=== PATIENT | male | born 1970 | race African-American/Black ===

== ENCOUNTER 2018-11-30 10:48 | Inpatient (IN) | payer SELFPAY ==
[2018-11-30] VITALS (8 sets, daily range): BP systolic 134–159; BP diastolic 76–110; PULSE 47–64; RESP 16–18; TEMP 36.8–37.2; O2SAT 96–100
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
[2018-11-30] MEDS: HYDROmorphone 2 MG/ML VIAL 1 MG IVP ×8 (11:16→23:40)
[2018-11-30] MEDS: Normal Saline 1,000 ML 1000 ML IV (11:21)
[2018-11-30 11:24] LABS: Abs Immature Grans 0.03 k/cumm (0.0-0.09); Absolute Basophil Count 0.01 k/cumm (0.0-0.2); Absolute Eosinophil Count 0.16 k/cumm (0.0-0.7); Absolute Lymphocyte Count 1.07 k/cumm (1.2-3.4); Absolute Monocyte Count 0.72 k/cumm (0.11-0.7); Absolute Neutrophil Count 7.04 k/cumm (1.2-6.7); Basophils % 0.1; Eosinophils % 1.8; HCT 44.2 % (40.0-50.0); HGB 14.7 g/dL (13.5-17.5); Immature Grans % 0.3; Lymphocytes % 11.8; Mean Corp. HGB Concentration 33.3 g/dL (32.0-36.0); Mean Corpuscular Hemoglobin 26.5 pg (27.0-33.0); Mean Corpuscular Volume 79.8 fL (80-95); Mean Platelet Volume 9.1 fL (8.0-11.0); Platelet Count 239 x1000/uL (130-400); RBC 5.54 m/cumm (4.50-6.00); RBC Distribution Width 14.9 % (11.8-14.1); White Blood Cell Count 9.03 k/cumm (4.4-10.8)
[2018-11-30] MEDS: Omnipaque 350 MG/ML 100 ML BTL IJ (11:26)
[2018-11-30 11:34] LABS: ALT 31 U/L (16-63); AST 26 U/L (15-37); Albumin 4.1 g/dL (3.4-5.0); Alkaline Phosphatase 66 U/L (46-116); Anion Gap 8.5 mmol/L (3-11); BUN 12 mg/dL (7-18); Bilirubin, Total 0.7 mg/dL (0.2-1.0); CO2 29.5 mmol/L (21.0-32.0); CREATININE 1.34 mg/dL (0.70-1.30); Calcium 8.4 mg/dL (8.5-10.1); Chloride 103 mmol/L (98-107); Estimated GFR 56.89 (mL/min/1.73m2); Glucose 76 mg/dL (70-100); Potassium 4.1 mmol/L (3.5-5.1); Sodium 141 mmol/L (136-145); Total Protein 7.8 g/dL (6.4-8.2)
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
[2018-11-30] MEDS: Normal Saline Flush 10 ML SYR IVP ×6 (14:52→23:41)
[2018-11-30] MEDS: Lactated Ringers 1,000 ML 30 ML IV (15:00)
[2018-11-30] MEDS: Acetaminophen 325 MG TAB 650 MG PO (15:02)
--- NOTE | 2018-11-30 17:06 | NUR.NOTE ---
Nursing Note: Pt to MS floor from ER via wheelchair at 1400. A&Ox3; VSS BP 151/110. Pain reported as 12/28. Dilaudid administered with some relief. Pt oriented to MS floor, call subramanian, TV, etc. Call subramanian within reach. RN will continue to monitor.
[2018-11-30] MEDS: traMADol 50 MG TAB PO (17:36)
[2018-11-30] MEDS: Ketorolac 30 MG/ML VIAL IVP ×2 (17:36→23:40)
[2018-12-01 00:38] VITALS: BP 135/88; PULSE 56; RESP 18; TEMP 36.6; O2SAT 96
[2018-12-01] MEDS: Normal Saline Flush 10 ML SYR IVP ×9 (00:46→20:58)
[2018-12-01] MEDS: HYDROmorphone 2 MG/ML VIAL 1 MG IVP ×8 (00:46→20:58)
[2018-12-01 04:28] VITALS: BP 137/88; PULSE 50; RESP 18; TEMP 36.6; O2SAT 97
[2018-12-01] MEDS: Ketorolac 30 MG/ML VIAL IVP (05:43)
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
[2018-12-01 09:30] VITALS: BP 136/82; PULSE 51; RESP 14; TEMP 36.7; O2SAT 99
[2018-12-01] MEDS: HYDROmorphone 2 MG TAB PO ×2 (09:40→12:06)
--- NOTE | 2018-12-01 10:59 | INITIAL_ITS ---
- If Service Date Differs Date of service: 12/01/18 Time of Service: 10:59 Care Management Initial Assess REASON FOR HOSPITALIZATION:: Rib fractures PAST MEDICAL HISTORY/PAST SURGICAL HISTORY:: No significant medical history. 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 They have no children. 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 CURRENT FUNCTIONAL STATUS:: Vernon was sitting up in bed, obviously in pain, wincing and grimacing with movement.Vernon said he had tried oral pain meds but that they didn't work. His physician changed the medication back to IV and Vernon will rermain another day.He shared that he called and has an appointment with [facility] on and is grateful for the information CM provided. ADVANCE DIRECTIVES:: none on file Has patient been provided with information about the portal?: No Did the patient sign up for the portal?: No CODE STATUS:: Full Code INSURANCE COVERAGE / FINANCIAL ISSUES:: self pay - provided with Patient Assistance packet and [facility] brochure CURRENT HOME/COMMUNITY SERVICES/EQUIPMENT:: none PRIMARY CARE PHYSICIAN:: none POTENTIAL DISCHARGE NEEDS:: new PCP. Insurance PATIENT/FAMILY EDUCATION NEEDS:: Discharge plan, limitations, follow up plan, A [employer] TRANSPORTATION:: via private vehicle when ready with girlfriend PLAN:: Vernon will be discharged home with no services. He will follow up with [facility] on and with his surgeon. He will transport with his partner Nicole.CM will continue to provide support to patient, family and discharge planning needs.
[2018-12-01] MEDS: Acetaminophen 325 MG TAB 650 MG PO (12:06)
[2018-12-01] MEDS: Ibuprofen 800 MG TAB PO ×2 (14:40→19:45)
--- NOTE | 2018-12-01 15:28 | PHARADMIT ---
Admission Pharmacy Clinical Review rib fractures Code Status Full Code Current Weight 79.379 kg Renally Cleared and Narrow Therapeutic Index Meds Crcl ~65.0 mL/min current meds okay QTc Value / Action Taken n/a BP Control, Fever BP 136/82 afebrile Electrolytes reviewed within normal limits DVT Prophylaxis none Opiate Usage / Scheduled Bowel Regimen Ordered prn/no Plt/SCr for Heparin / Enoxaparin plt 239 SCr 1.34 INR for Warfarin n/a H/H stable, WBC/Bands h/h 14.7/44.2 WBC 9.03 Antibiotic appropriateness none Cultures and Sensitivities none Surgical ABX d/c within 24 hr n/a DM control / Insulin Dosing BG 76 none Heart Failure (Check EF%) (MICKIE's, B-Block, Diuretics) none IV to PO Switch n/a Home Meds Reviewed yes Home Meds Not Ordered all ordered Comments
[2018-12-01 16:13] VITALS: BP 130/77; PULSE 81; RESP 16; TEMP 37; O2SAT 95
[2018-12-01] MEDS: LORazepam 2 MG/ML VIAL IVP (20:51)
[2018-12-01 21:03] VITALS: BP 136/74; PULSE 53; RESP 17; TEMP 36.2; O2SAT 97
[2018-12-02 00:22] VITALS: BP 138/72; PULSE 56; RESP 16; TEMP 36.4; O2SAT 99
[2018-12-02] MEDS: HYDROmorphone 2 MG/ML VIAL 1 MG IVP ×7 (04:29→16:39)
[2018-12-02] MEDS: Normal Saline Flush 10 ML SYR IVP ×7 (04:30→16:39)
[2018-12-02 04:34] VITALS: BP 123/76; PULSE 52; RESP 16; TEMP 36.7; O2SAT 96
[2018-12-02 08:00] VITALS: BP 144/93; PULSE 54; RESP 18; TEMP 36.6; O2SAT 96
[2018-12-02] MEDS: Ibuprofen 800 MG TAB PO ×2 (08:09→14:20)
--- NOTE | 2018-12-02 08:25 | W.PM.PROGNOT ---
Date of Service Date of service: 12/02/18 Time of Service: 07:45 Assessment and Plan Assessment and plan (1) Multiple rib fractures involving four or more ribs: Status: Acute Assessment and plan: Slow progress Will re-attempt transition to oral pain meds today and discharge this afternoon if pain controlled. Subjective Subjective Interval history since last seen: Slept better Did not take pain meds for about 8 hours overnight but was quite sore this morning Needed straight cath again last night but voided this morning No new complaints Exam Narrative Exam Narrative: Appears slightly more mobile Lungs CTA bilaterally Objective Objective Clinical Data: Vital Signs Temperature 98.1 F 12/02/18 04:34 Temperature Source Tympanic 12/02/18 04:34 Pulse 52 L 12/02/18 04:34 Pulse Rhythm Regular 12/02/18 04:30 Respiratory Rate 16 12/02/18 04:34 Respiratory Effort Non-Labored 12/02/18 04:30 Respiratory Depth Shallow 12/02/18 04:30 Respiratory Pattern Normal 12/02/18 04:30 Blood Pressure 123/76 12/02/18 04:34 Blood Pressure Position Sitting 11/30/18 10:51 Pulse Oximetry 96 12/02/18 04:34 Oxygen Delivery Method Room Air 12/02/18 04:34 Oxygen Flow Rate 0 12/02/18 04:34 Pain Level 9 12/02/18 08:09 Comment 12/02/18 04:34 Intake & Output 12/01/18 12/01/18 12/02/18 11:59 23:59 11:59 Intake Total 1115 / 1605 490 / 1605 Output Total 2410 / 3010 600 / 3010 450 / 450 Balance -1295 / -1405 -110 / -1405 -450 / -450 Intake: IV 515 / 525 10 / 525 Oral 600 / 1080 480 / 1080 Output: Urine 2410 / 3010 600 / 3010 450 / 450 Other: Urine Color Light Britney Yellow Yellow Light Britney Urine Appearance Clear Clear Clear Comment bladder scanned for 720. Patient voided 100 in toilet. Laboratory Results WBC 9.03 k/cumm (4.4-10.8) 11/30/18 11:05 RBC 5.54 m/cumm (4.50-6.00) 11/30/18 11:05 Hgb 14.7 g/dL (13.5-17.5) 11/30/18 11:05 Hct 44.2 % (40.0-50.0) 11/30/18 11:05 MCV 79.8 fL (80-95) L 11/30/18 11:05 MCH 26.5 pg (27.0-33.0) L 11/30/18 11:05 MCHC 33.3 g/dL (32.0-36.0) 11/30/18 11:05 RDW 14.9 % (11.8-14.1) H 11/30/18 11:05 Plt Count 239 x1000/uL (130-400) 11/30/18 11:05 MPV 9.1 fL (8.0-11.0) 11/30/18 11:05 Immature Gran % 0.3 11/30/18 11:05 Neutrophils % 78.0 11/30/18 11:05 Lymphocytes % 11.8 11/30/18 11:05 Monocytes % 8.0 11/30/18 11:05 Eosinophils % 1.8 11/30/18 11:05 Basophils % 0.1 11/30/18 11:05 Absolute Neutrophils 7.04 k/cumm (1.2-6.7) H 11/30/18 11:05 Absolute Lymphocytes 1.07 k/cumm (1.2-3.4) L 11/30/18 11:05 Absolute Monocytes 0.72 k/cumm (0.11-0.7) H 11/30/18 11:05 Absolute Eosinophils 0.16 k/cumm (0.0-0.7) 11/30/18 11:05 Absolute Basophils 0.01 k/cumm (0.0-0.2) 11/30/18 11:05 Sodium 141 mmol/L (136-145) 11/30/18 11:05 Potassium 4.1 mmol/L (3.5-5.1) 11/30/18 11:05 Chloride 103 mmol/L (98-107) 11/30/18 11:05 Carbon Dioxide 29.5 mmol/L (21.0-32.0) 11/30/18 11:05 Anion Gap 8.5 mmol/L (3-11) 11/30/18 11:05 BUN 12 mg/dL (7-18) 11/30/18 11:05 Creatinine 1.34 mg/dL (0.70-1.30) H 11/30/18 11:05 Estimated GFR/1.73 m2 56.89 (mL/min/1.73m2) 11/30/18 11:05 Glucose 76 mg/dL (70-100) 11/30/18 11:05 Calcium 8.4 mg/dL (8.5-10.1) L 11/30/18 11:05 Total Bilirubin 0.7 mg/dL (0.2-1.0) 11/30/18 11:05 AST 26 U/L (15-37) 11/30/18 11:05 ALT 31 U/L (16-63) 11/30/18 11:05 Alkaline Phosphatase 66 U/L (46-116) 11/30/18 11:05 Total Protein 7.8 g/dL (6.4-8.2) 11/30/18 11:05 Albumin 4.1 g/dL (3.4-5.0) 11/30/18 11:05
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
[2018-12-02] MEDS: Docusate Sodium 100 MG CAP PO (11:10)
[2018-12-02 11:39] VITALS: BP 147/89; PULSE 48; RESP 16; TEMP 35.7; O2SAT 100
[2018-12-02] MEDS: Polyethylene Glycol 3350 17 GM PACKET PO (12:20)
--- NOTE | 2018-12-02 15:35 | PDOC.CMDIS ---
- If Service Date Differs Date of service: 12/02/18 Time of Service: 15:36 LACE Index Scoring Tool - Questions: Length of Stay (in days): 3 Acuity (Admit via E.D.?): Yes E.D. Visits: 1 - Answers: Total Score: 7 Risk of Readmission: Low Risk Care Management Discharge Reason for Hospitalization: Rib fractures Discharge Plan: Vernon will return home with no additional services at this time. He will [facility] with [facility] on 12[facility], as well as a surgical follow up. He will transport via private vehicle driven by his partner, Nicole. Patient/Family Education Needs: Review discharge instructions regarding activity levels and medications, discussion of self care including Ask Me Three.
== END 2018-12-02 16:50 | disposition home or self-care (01) | DRG 185 ==
LOC: ER 13:21 → MS 14:25
PROVIDERS: Admitting Provider Surgery; Emergency Provider Physician Assistant; Visit Provider Surgery
DX: S22.42XA Multiple fractures of ribs, left side, initial encounter for closed fracture (principal); R07.81 Pleurodynia; V86.56XA Driver of dirt bike or motor/cross bike injured in nontraffic accident, initial encounter; Z23 Encounter for immunization
CPT/HCPCS: 36415; 74177; 80053; 96361; 96374; 96375; 99222; 99231; 99285; 71260; 85025; 99284; J1885; J2060; J3490

== ENCOUNTER 2018-12-03 10:00 | Emergency (ER) | payer SELFPAY ==
[2018-12-03] VITALS (7 sets, daily range): BP systolic 122–138; BP diastolic 68–85; PULSE 63–84; RESP 14–18; TEMP 37.5; O2SAT 95–96
--- NOTE | 2018-12-03 10:43 | DI.RAD_ITS ---
EXAM: XR CHEST 2V PA LATERAL INDICATION: Shortness of breath, recent rib fractures. COMPARISON: CT CHEST/ABD/PEL W from 11/30/2018 TECHNIQUE: 2D digital imaging was performed. FINDINGS: Heart size is normal. There is no mediastinal widening. The lungs are not well inflated on either v iew. Linear densities are seen above the left diaphragm, likely atelectasis. No pneumothorax is see n. There are left lateral rib fractures. The thoracic spine appears intact. IMPRESSION: Left lateral rib fractures and mild left basilar atelectasis.
[2018-12-03] MEDS: HYDROmorphone 2 MG/ML VIAL 1 MG IVP ×2 (10:59→13:34)
--- NOTE | 2018-12-03 11:06 | W.ED.GENAD ---
Discharge Plan Disposition Patient Disposition: HOME Condition: Improving Discharge Details Chief Complaint: SOB Clinical Impression: Multiple rib fractures involving four or more ribs Primary Care Provider: None,None ED Provider: Ralph Rosas Home Meds and New Rx's Prescriptions: New cyclobenzaprine 10 mg tablet 10 mg PO TID PRN (Reason: muscle spasm) Qty: 20 RF: 0 Continued albuterol sulfate [Ventolin HFA] 90 mcg/actuation Hfa Aerosol Inhaler 2 puff INHALATION QID PRNRF: 0 hydromorphone 2 mg tablet 2 - 4 mg PO Q3H PRN (Reason: pain) Qty: 40 RF: 0 ibuprofen 800 mg tablet 800 mg PO TID PRN (Reason: pain) Qty: 30 RF: 0 zolpidem [Ambien] 5 mg tablet 5 mg PO QHS PRN (Reason: sleep) Qty: 10 RF: 0 No Action oxycodone-acetaminophen [Percocet] 10-325 mg tablet 1 - 2 tab PO .q4-6 MDD 12 PRN (Reason: pain) Qty: 30 RF: 0 Discharge Instructions Instructions: Rib Fracture (ED) Additional Instructions: It is very important that you continue to take your pain medication on a normal schedule basis. Take 1 to 2 tablets of the hydromorphone every 3 hours. You may also utilize acetaminophen or ibuprofen and take in combination with narcotic pain medication. Continue to do deep breathing exercises as tolerated and if not improving please call the general surgery office tomorrow morning for reassessment. For any new or significant worsening of symptoms that is drastic or severe feel free to return to the emergency department Referrals: [facility] [Provider Group] (Call the office tomorrow morning) Discharge Data Discharge Date/Time-TO BE ENTERED AT DEPARTURE: 12/03/18 16:03 Medical Decision Making Patient presenting to the emergency department for chief complaint of continued rib pain. Patient recently suffered a traumatic injury with multiple rib fractures. Patient was discharged last night on hydromorphone but states pain has continued and he feels short of breath. Patient visibly does not appear in any significant or severe distress, no tachypnea, no tachycardia, no hypoxia. Patient has diminished lung sounds bilaterally in the lower bases otherwise clear lung sounds throughout and air movement is heard in all other lung steel. Plan to do chest x-ray to look for any change in status otherwise I feel that patient is mostly experiencing pain response due to traumatic injury. Pending results patient given IV hydromorphone. Review of chest x-ray shows no pneumothorax and continued stable rib fracture. Patient reassessed and stated that IV pain medication helped but is requesting imaging for continued IV pain medication. Patient though does state that he is concerned about cost is more cost effective than admission. Attend but will talk care management. Care arrangement came and cost with patient and after multiple discussions patient was agreeable to anesthesia consult and rib block. Pending anesthesia returning patient given additional dose of IV hydromorphone. After rib block was performed patient reassessed and did state significant improvement in pain posteriorly but still having some pain anteriorly that was not as severe as before but patient extremely anxious about pain control. Patient was given lidocaine patch on anterior chest wall otherwise I did speak with on-call surgeon Dr. Kay whom stated that she would not recommend admission at this time due for further pain control as patient is improving. I also agree with this plan. Discussed the plan with patient, patient during discussion became almost demanding for admission and IV pain medication. Given patient's history of narcotic abuse and stating that only IV pain medication works and that the oral hydromorphone did nothing I do have some concern. I feel the best plan is for patient to be discharged home given stable condition with no significant change and to reattempt oral pain medication that was already prescribed at discharge. Patient was informed to call general surgery office in the morning for any further follow-up and reassessment as needed. [facility] General Mode of arrival: ambulatory. Date/Time Provider Initiated Documentation: 12/03/18 10:02. Limitations to Documentation: no limitations. Information obtained by: patient, family and RN notes reviewed. History of Present Illness 48 year old M presents to the emergency department with the chief complaint of Shortness of breath, rib pain, described as severe, with intensity rated at 10. Quality is described as sharp, and is localized to the chest and left. Patient started experiencing this day(s) (3) and it has been constant. No relieving factors improve symptom(s), Patient did receive the following treatments prior to arrival, other (Prescribed opiate at 9 AM) Related Data Home Medications Medication Instructions Recorded Confirmed albuterol sulfate [Ventolin HFA] 2 puff INHALATION QID PRN 11/30/18 12/03/18 hydromorphone 2 - 4 mg PO Q3H PRN #40 tab 12/02/18 12/03/18 ibuprofen 800 mg PO TID PRN #30 tab 12/02/18 12/03/18 zolpidem [Ambien] 5 mg PO QHS PRN #10 tab 12/02/18 12/03/18 cyclobenzaprine 10 mg PO TID PRN #20 tab 12/03/18 oxycodone-acetaminophen 10 mg-325 1 - 2 tab PO .q4-6 PRN #30 tab MDD 12/04/18 mg tablet 12 Previous Rx's Medication Instructions Recorded hydromorphone 2 - 4 mg PO Q3H PRN #40 tab 12/02/18 ibuprofen 800 mg PO TID PRN #30 tab 12/02/18 zolpidem [Ambien] 5 mg PO QHS PRN #10 tab 12/02/18 cyclobenzaprine 10 mg PO TID PRN #20 tab 12/03/18 oxycodone-acetaminophen 10 mg-325 1 - 2 tab PO .q4-6 PRN #30 tab MDD 12/04/18 mg tablet 12 Allergies Allergy/AdvReac Type Severity Reaction Status Date / Time No Known Allergies Allergy Unverified 12/03/18 10:16 General Stated Complaint: SOB BILLY: 3 Review of Systems Constitutional Constitutional: Denies fever(s) Cardiovascular Cardiovascular: Reports chest pain, Denies palpitations and Reports dyspnea Respiratory Respiratory: Denies cough, Reports pain on inspiration and Reports dyspnea Gastrointestinal Gastrointestinal: Denies abdominal pain Endocrine Endocrine: Denies palpitations [facility] [place] Surgical History S/P laminectomy (Acute) Social History Smoking/Tobacco Use Status: Never Alcohol Intake: never Substance use type: does not use Do you feel safe at home: Yes Do you feel safe in your relationship?: Yes Exam Const General: cooperative, no acute distress and not ill appearing Orientation: alert, awake and oriented x3 HENMT Mouth: moist mucous membranes Chest Chest: localized rib tenderness with anteroposterior compression left anterior-axillary line Resp Effort & Inspection: normal respiratory effort, able to speak in complete sentences and no respiratory distress Auscultation: clear to auscultation bilaterally and diminished lung sounds bilaterally in the lower lung steel Cardio Rate: regular rate and not tachycardic Rhythm: regular rhythm Heart Sounds: S1 normal, S2 normal, no click, no gallops, no murmurs and no rubs Neuro General: alert, awake, oriented x3, moves all extremities and no focal motor deficits Sensory Exam: no sensory deficits noted Course Vital Signs Vital signs: Vital Signs Temperature 37.5 C 12/03/18 10:08 Pulse 84 12/03/18 10:08 Respiratory Rate 14 12/03/18 10:08 Blood Pressure 137/81 12/03/18 10:08 Pulse Oximetry 96 12/03/18 10:08 Temperature 37.5 C 12/03/18 10:08 Temperature Source Temporal Artery Scan 12/03/18 10:08 Pulse 84 12/03/18 10:08 Respiratory Rate 14 12/03/18 10:10 Respiratory Effort 12/03/18 10:10 Respiratory Depth Shallow 12/03/18 10:10 Respiratory Pattern Bradypnea 12/03/18 10:10 Blood Pressure 137/81 12/03/18 10:08 Blood Pressure Position Sitting 12/03/18 10:08 Pulse Oximetry 96 12/03/18 10:08 Oxygen Delivery Method Room Air 12/03/18 10:08 Oxygen Flow Rate 0 12/03/18 10:08 Pain Level 10 12/03/18 10:59
[2018-12-03] MEDS: Bupivacaine 0.25% Pres-Free 30 ML VIAL (14:25)
[2018-12-03] MEDS: Bupivacaine LIPOSOME/PF 133 MG/10 ML VIAL IJ (14:25)
--- NOTE | 2018-12-03 14:53 | PDOC.ERCMPRO ---
- If Service Date Differs Date of service: 12/03/18 Time of Service: 14:53 Care Management Progress Note S/O: RYAN met with Barrera at the bedside he arrives to the ED today with pain and SOB r/t recent rib fractures. Barrera was discharged home yesterday with oral medications to treat pain and discomfort. Barrera states that the oral pain medications are not working and he needs relief from pain. Barrera is very concerned with the cost of the medications due to lack of insurance. Barrera is over income for medicaid and he is planning on applying for insurance through [employer], and was provided with patient assistance application. CM confirmed with the patient that open enrollment is on December 19. CM contact patient billing and pharmacy the cost of the injection is considerably less than the cost of inpatient treatment. The medication used to inject the site is around 600.00 per pharmacy. CM was able to meet with the patient and anaesthesia to provide information about the treatment so that the patient could make an informed decision. The patient states he is okay having the nerve block and is hopeful that he will be able to be more comfortable and able to return home. P: Barrera will have the nerve block to relieve the pain in his left rib area. He has follow up schedule with surgeon on 12/08/18. Barrera has an appointment with [facility] [employer] [facility] for insurance assistance on 12/04/18.
[2018-12-03] MEDS: Lidocaine 5% Patch 1 PATCH TP (15:34)
--- NOTE | 2018-12-03 16:00 | NUR.NOTE ---
Referral faxed to [facility]Nursing Note:
== END 2018-12-03 16:03 | disposition home or self-care (01) ==
PROVIDERS: Emergency Provider Nurse Practitioner Family
DX: S22.42XA Multiple fractures of ribs, left side, initial encounter for closed fracture (principal); R07.81 Pleurodynia; V28.0XXA Motorcycle driver injured in noncollision transport accident in nontraffic accident, initial encounter
CPT/HCPCS: 64450; 76942; 96374; 96376; 99284; 71046

== ENCOUNTER 2019-03-03 08:12 | Outpatient (CLI) | payer BC, SELFPAY ==
[2019-03-03 09:23] LABS: Calculated LDL 95 mg/dL; Cholesterol 173 mg/dL (<200); HDL Cholesterol 70 mg/dL (40-60); Triglyceride 42 mg/dL (<150)
== END 2019-03-03 08:32 ==
PROVIDERS: PCP Family Medicine; Visit Provider Family Medicine
DX: Z13.220 Encounter for screening for lipoid disorders (principal)
CPT/HCPCS: 36415; 80061

== ENCOUNTER 2019-06-24 09:20 | Outpatient (CLI) | payer BC, SELFPAY ==
[2019-06-25 16:00] LABS: COVID-19 RT-PCR Result Not Detected ((See Note))
== END 2019-06-24 09:40 ==
PROVIDERS: PCP Family Medicine; Visit Provider Family Medicine
DX: R06.02 Shortness of breath (principal)
CPT/HCPCS: U0003

== ENCOUNTER 2019-07-01 02:03 | Outpatient (CLI) | payer BC, SELFPAY ==
--- NOTE | 2019-07-01 08:00 | DI.RAD_ITS ---
EXAM: XR CHEST 2V PA LATERAL CLINICAL HISTORY: Known asthma, dyspnea despite maximal therapy,R06.00 TECHNIQUE: 2D digital imaging was performed. COMPARISON: CR XR CHEST 2V PA LATERAL from 12/03/2018 FINDINGS: The heart is not enlarged. The lungs are clear and well expanded. No pleural effusion seen. Mediastin al contours appear intact. IMPRESSION: Normal chest
[2019-07-01 14:51] LABS: Abs Immature Grans 0.02 k/cumm (0.0-0.09); Absolute Basophil Count 0.01 k/cumm (0.0-0.2); Absolute Eosinophil Count 0.27 k/cumm (0.0-0.7); Absolute Lymphocyte Count 1.65 k/cumm (1.2-3.4); Absolute Neutrophil Count 4.86 k/cumm (1.2-6.7); Basophils % 0.1; Eosinophils % 3.6; HCT 43.5 % (40.0-50.0); HGB 14.3 g/dL (13.5-17.5); Immature Grans % 0.3 %; Mean Corp. HGB Concentration 32.9 g/dL (32.0-36.0); Mean Corpuscular Hemoglobin 26.5 pg (27.0-33.0); Mean Corpuscular Volume 80.6 fL (80-95); Mean Platelet Volume 8.9 fL (8.0-11.0); Monocytes % 9.3; Neutrophils % 64.7; Platelet Count 236 x1000/uL (130-400); RBC Distribution Width 14.4 % (11.8-14.1); White Blood Cell Count 7.51 k/cumm (4.4-10.8)
[2019-07-01 15:31] LABS: D-Dimer 164 ng/mlFEU (<500)
== END 2019-07-01 02:23 ==
PROVIDERS: PCP Family Medicine; Visit Provider Family Medicine
DX: R06.09 Other forms of dyspnea (principal); J45.909 Unspecified asthma, uncomplicated
CPT/HCPCS: 36415; 71046; 85025; 85379

== ENCOUNTER 2019-12-03 10:25 | Emergency (ER) | payer BC, SELFPAY ==
[2019-12-03] VITALS (47 sets, daily range): BP systolic 113–164; BP diastolic 72–101; PULSE 44–66; RESP 10–25; TEMP 36.8; O2SAT 98–100
--- NOTE | 2019-12-03 10:30 | RT.EKG_ITS ---
APPROVED REPORT Exam: Resting ECG Patient Location: E HR:49 bpm ECG Measurements Heart Rate 49 AXIS OK 158 P 63 QRSd 100 QRS 72 QT 469 T 63 QTc 423 Conclusion Sinus bradycardia...rate< 60 Probable left ventricular hypertrophy...multiple LVH criteria ST elev, probable normal early repol pattern...ST elevation, age<55. Suspect early repolarization. No STEMI. I have reviewed and interpreted ECG and agree with software generated interpretation.
--- NOTE | 2019-12-03 11:00 | DI.RAD_ITS ---
EXAM: XR PORTABLE CHEST AP CLINICAL HISTORY: left sided pain, sob TECHNIQUE: 2D digital imaging was performed. COMPARISON: No exams were available for comparison FINDINGS: MEDIASTINUM: Normal. HEART: Normal. PULMONARY VASCULATURE: Normal. LUNGS: Clear. PLEURAL SPACE: No pleural effusion or pneumothorax. BONE:Within normal limits for the patient's age. OTHER FINDINGS:Normal. IMPRESSION: No acute pulmonary findings. DATA REPOSITORY: RADIATION DOSE DELIVERED:
[2019-12-03 11:09] LABS: Abs Immature Grans 0.03 10^3/uL (0.0-0.06); Absolute Basophil Count 0.01 10^3/uL (0.0-0.2); Absolute Eosinophil Count 0.01 10^3/uL (0.0-0.7); Absolute Lymphocyte Count 0.75 10^3/uL (1.2-3.4); Absolute Neutrophil Count 5.41 10^3/uL (1.2-6.7); Basophils % 0.2; Eosinophils % 0.2; HCT 47.1 % (40.0-50.0); HGB 14.8 g/dL (13.5-17.5); Immature Grans % 0.5; Lymphocytes % 11.7; MCH 26.2 pg (27.0-33.0); MCHC 31.4 % (32.0-36.0); MCV 83.5 fL (80-95); Monocytes % 3.1; Neutrophils % 84.3; Nucleated RBC 0 %; Platelet Count 235 10^3/uL (130-400); RBC 5.64 10^6/uL (4.36-5.78); RDW-SD 42.5 fL; WBC 6.41 10^3/uL (4.4-10.8)
[2019-12-03 11:26] LABS: ALT 42 U/L (16-63); AST 28 U/L (15-37); Albumin 4.3 g/dL (3.4-5.0); Alkaline Phosphatase 46 U/L (46-116); Anion Gap 6.1 mmol/L (3-11); BUN 16 mg/dL (7-18); Bilirubin, Total 0.9 mg/dL (0.2-1.0); CO2 30.9 mmol/L (21.0-32.0); Calcium 9.4 mg/dL (8.5-10.1); Chloride 102 mmol/L (98-107); Estimated GFR 53.86 (mL/min/1.73m2); Glucose 106 mg/dL (74-106); Magnesium 2.1 mg/dL (1.8-2.4); Potassium 3.9 mmol/L (3.5-5.1); Sodium 139 mmol/L (136-145); Total Protein 7.8 g/dL (6.4-8.2)
[2019-12-03 11:29] LABS: Troponin I < 0.05 ng/mL (<0.06)
[2019-12-03 11:36] LABS: Prothrombin Time 10.2 sec (9.3-11.0)
[2019-12-03 11:45] LABS: D-Dimer 110 ng/mlFEU (<500)
--- NOTE | 2019-12-03 11:49 | ED.GENADUL_ITS ---
Discharge Plan Disposition Patient Disposition: HOME Condition: Stable Discharge Details Clinical Impression: Chest pain, Dyspnea Primary Care Provider: Musa Hylton ED Provider: Vernon Hudson Home Meds and New Rx's Prescriptions: New naproxen [Naprosyn] 500 mg tablet 500 mg PO BID PRNQty: 20 RF: 0 Continued bupropion HCl 150 mg tablet extended release 24 hr 150 mg PO QAM RF: 0 (DME) [employer] See Rx Instructions .ROUTE .MEDSUPPLY Qty: 1 RF: 0 albuterol sulfate [Ventolin HFA] 90 mcg/actuation HFA aerosol inhaler 2 puff INHALATION QID PRN (Reason: shortness of breath) Qty: 18 RF: 12 tadalafil 5 mg tablet 5 mg PO DAILY PRN (Reason: sexual activity) Qty: 90 RF: 11 budesonide-formoterol [Symbicort] 80-4.5 mcg/actuation HFA aerosol inhaler 2 puff IH BID Qty: 10.2 RF: 3 prednisone 50 mg tablet 50 mg PO DAILY 5 Days Qty: 5 RF: 0 Discharge Instructions Instructions: Chest Pain (ED), Dyspnea (ED) Additional Instructions: At this time your work-up in the ER was unremarkable for obvious emergent process. As we discussed, Naprosyn as directed. Please watch for new or worsening symptoms and return to the ER for any concerns. I recommend that you contact your primary care provider tomorrow for prompt outpatient reevaluation. I also recommend that you attempt to be seen sooner than your scheduled appointment with your compounding technician in February. Discharge Data Discharge Date/Time-TO BE ENTERED AT DEPARTURE: 12/03/19 15:22 Medical Decision Making This is a 49-year-old gentleman, history of asthma presenting to the ER reporting intermittent chest pain and shortness of breath. He states that the initial episode was nearly 4 months ago, resolved with a Z-Boo. He has since been scheduled to be seen by a compounding technician in February. Symptoms began again a few days ago, rescue inhalers did not help, placed on oral steroids by his primary care provider via telemedicine. He denies any cough, wheezing, and does not feel as though the steroids are making much of a difference in his symptoms. Clinically he appears well, nontoxic. Heart rate in the 50s. O2 sats 100% on room air, respirations 14, he is afebrile. He does have reproducible left-sided chest wall discomfort. Pain is made worse with taking deep breaths. Differential includes but not excluded to ACS, PE, pneumonia, bronchitis, asthma exacerbation, costochondritis, pleurisy, aneurysm, etc. Will initiate a cardiac work-up including PE. Initial work-up reveals a white blood cell count of 6.41 hemoglobin 14.8 hematocrit 47.1 platelet count 235. INR 1.0 D-dimer 110. Will not pursue chest CTA given his normal dimer. Electrolytes unremarkable. Creatinine 1.40 with a GFR of 53.86. Glucose 106. Calcium 9.4 magnesium 2.1 LFTs unremarkable. Initial troponin less than 0.05. Chest x-ray clear, initial EKG unremarkable. Discussed work-up with patient. He will be given 30 IV Toradol. He is agreeable to awaiting a repeat troponin and EKG in 3-hour timeframe. I was called into the room, patient questions if he needs to wait for the 3-hour troponin and EKG. I recommended that he did such. Given this he is willing to await the repeat studies. He reports no significant improvement with the Toradol. I will now try Mylanta and lidocaine. We also discussed that he will be tested for Covid and discussed quarantining. Patient reports no significant improvement with the Mylanta and lidocaine. Patient remains well-appearing. He speaks in full sentences and in no respiratory distress. O2 sat remains 100% on room air. I did place a call out to his primary care office to discuss his work-up here in the ER and need for outpatient evaluation. Unfortunately his primary care provider was not in the office and I was told I would receive a phone call from one of his colleagues. Repeat troponin less than 0.05. Repeat EKG performed at 1416. Please see official report by Dr. Pleitez. Sinus bradycardia, ventricular of 49. No STEMI. Likely left ventricular hypertrophy I discussed the repeat troponin and EKG with patient. He is relieved that this is normal but frustrated that we do not have a clear explanation of his symptoms. I explained to him that given his pain is reproducible, worse with taking a deep breath I do believe that initiating anti-inflammatory therapy is reasonable. Patient is agreeable to this plan and would like to be discharged. I have not received a call back from his primary care office to discuss his work-up. I will be sure to CC this note to his primary care provider to help expedite outpatient care. Patient was encouraged to return to the ER for new or worsening symptoms, otherwise reach out to his primary care provider tomorrow for prompt outpatient reevaluation. Medical Records Medical records reviewed: Yes I reviewed the patient's medical records. Imaging Data Radiologic Study: Attestation: I personally reviewed and interpreted this imaging study as follows: Imaging: X-Ray Radiologist's impression: Chest x-ray unremarkable Lab Data Lab results reviewed: Yes I reviewed the patient's lab results. Lab results narrative: Laboratory Tests Range/Units 12/03/19 12/03/19 12/03/19 10:50 10:50 10:50 WBC (4.4-10.8) 10^3/uL 6.41 RBC (4.36-5.78) 10^6/uL 5.64 Hgb (13.5-17.5) g/dL 14.8 Hct (40.0-50.0) % 47.1 MCV (80-95) fL 83.5 MCH (27.0-33.0) pg 26.2 L MCHC (32.0-36.0) % 31.4 L RDW (11.8-14.1) % 14.0 Plt Count (130-400) 10^3/uL 235 MPV (8.0-11.0) fL 9.0 Immature Gran % 0.5 Neutrophils % 84.3 Lymphocytes % 11.7 Monocytes % 3.1 Eosinophils % 0.2 Basophils % 0.2 Nucleated RBC % % 0 Absolute Neutrophils (1.2-6.7) 10^3/uL 5.41 Absolute Lymphocytes (1.2-3.4) 10^3/uL 0.75 L Absolute Monocytes (0.1-0.8) 10^3/uL 0.20 Absolute Eosinophils (0.0-0.7) 10^3/uL 0.01 Absolute Basophils (0.0-0.2) 10^3/uL 0.01 PT (9.3-11.0) sec 10.2 INR (0.9-1.1) 1.0 APTT (21.0-31.4) sec 26.0 D-Dimer (<500) ng/mlFEU 110 Sodium (136-145) mmol/L 139 Potassium (3.5-5.1) mmol/L 3.9 Chloride (98-107) mmol/L 102 Carbon Dioxide (21.0-32.0) mmol/L 30.9 Anion Gap (3-11) mmol/L 6.1 BUN (7-18) mg/dL 16 Creatinine (0.70-1.30) mg/dL 1.40 H Estimated GFR/1.73 m2 (mL/min/1.73m2) 53.86 Glucose (74-106) mg/dL 106 Calcium (8.5-10.1) mg/dL 9.4 Magnesium (1.8-2.4) mg/dL 2.1 Total Bilirubin (0.2-1.0) mg/dL 0.9 AST (15-37) U/L 28 ALT (16-63) U/L 42 Alkaline Phosphatase (46-116) U/L 46 Troponin I (<0.06) ng/mL < 0.05 Total Protein (6.4-8.2) g/dL 7.8 Albumin (3.4-5.0) g/dL 4.3 COVID-19 PCR Nasopharyn COVID-19 PCR Ref Test Perform Site Range/Units 12/03/19 12/03/19 14:09 15:15 WBC (4.4-10.8) 10^3/uL RBC (4.36-5.78) 10^6/uL Hgb (13.5-17.5) g/dL Hct (40.0-50.0) % MCV (80-95) fL MCH (27.0-33.0) pg MCHC (32.0-36.0) % RDW (11.8-14.1) % Plt Count (130-400) 10^3/uL MPV (8.0-11.0) fL Immature Gran % Neutrophils % Lymphocytes % Monocytes % Eosinophils % Basophils % Nucleated RBC % % Absolute Neutrophils (1.2-6.7) 10^3/uL Absolute Lymphocytes (1.2-3.4) 10^3/uL Absolute Monocytes (0.1-0.8) 10^3/uL Absolute Eosinophils (0.0-0.7) 10^3/uL Absolute Basophils (0.0-0.2) 10^3/uL PT (9.3-11.0) sec INR (0.9-1.1) APTT (21.0-31.4) sec D-Dimer (<500) ng/mlFEU Sodium (136-145) mmol/L Potassium (3.5-5.1) mmol/L Chloride (98-107) mmol/L Carbon Dioxide (21.0-32.0) mmol/L Anion Gap (3-11) mmol/L BUN (7-18) mg/dL Creatinine (0.70-1.30) mg/dL Estimated GFR/1.73 m2 (mL/min/1.73m2) Glucose (74-106) mg/dL Calcium (8.5-10.1) mg/dL Magnesium (1.8-2.4) mg/dL Total Bilirubin (0.2-1.0) mg/dL AST (15-37) U/L ALT (16-63) U/L Alkaline Phosphatase (46-116) U/L Troponin I (<0.06) ng/mL < 0.05 Total Protein (6.4-8.2) g/dL Albumin (3.4-5.0) g/dL COVID-19 PCR Cancelled Nasopharyn COVID-19 PCR Cancelled Ref Test Perform Site Cancelled ECG Data Attestation: I personally reviewed and interpreted this ECG (s) as follows: Interpretation: Please see official report by Dr. Pleitez. Sinus bradycardia, ventricular rate of 49. Likely early repolarization. No STEMI HPI General Mode of arrival: ambulatory . Date/Time Provider Initiated Documentation: 12/03/19 10:46 . Limitations to Documentation: no limitations . Information obtained by: patient . HPI Narrative: This is a 49-year-old female with a history of asthma, depression, back pain-sciatica, substance abuse, presenting to the ER for chest pain and shortness of breath. He reports that he had a similar episode nearly 4 months ago. At that time he was given a prescription of azithromycin through his primary care provider and felt much improved. He states that over the past couple of days he initially had a right sided chest pain that now is on the left side. He denies any radiation of that pain. It is made worse with taking a deep breath. He states that he feels short of breath like he cannot take a deep breath but denies any coughing or wheezing. He is on day 3 of 50 mg p.o. prednisone provided by his primary care provider. He thought that he was initially doing slightly better but now feels as though steroids are not helping. Patient denies headache, fever, neck pain, back pain, abdominal pain, nausea, vomiting, change in bowel or bladder function, numbness, tingling, weakness. He denies any cardiac history. Patient is not a smoker. He is scheduled to be seen by compounding technician for his ongoing symptoms however this is not scheduled until February. He states that when his symptoms began he took his rescue inhaler without any relief of his symptoms. Related Data Home Medications Medication Instructions Recorded Confirmed albuterol sulfate 90 mcg/actuation 2 puff INHALATION QID PRN #18 gm 03/10/19 12/03/19 aerosol inhaler bupropion HCl 150 mg 24 hr tablet, 150 mg PO QAM tab 06/04/19 12/03/19 extended release inhalational spacing device #1 each 06/23/19 07/08/19 tadalafil 5 mg tablet 5 mg PO DAILY PRN #90 tab 09/17/19 12/03/19 budesonide-formoterol HFA 80 2 puff IH BID #10.2 g 11/16/19 12/03/19 mcg-4.5 mcg/actuation aerosol inhaler prednisone 50 mg tablet 50 mg PO DAILY 5 Days #5 tab 12/01/19 12/03/19 naproxen [Naprosyn] 500 mg PO BID PRN #20 tab 12/03/19 Previous Rx's Medication Instructions Recorded albuterol sulfate 90 mcg/actuation 2 puff INHALATION QID PRN #18 gm 03/10/19 aerosol inhaler inhalational spacing device #1 each 06/23/19 tadalafil 5 mg tablet 5 mg PO DAILY PRN #90 tab 09/17/19 budesonide-formoterol HFA 80 2 puff IH BID #10.2 g 11/16/19 mcg-4.5 mcg/actuation aerosol inhaler prednisone 50 mg tablet 50 mg PO DAILY 5 Days #5 tab 12/01/19 naproxen [Naprosyn] 500 mg PO BID PRN #20 tab 12/03/19 Allergies Allergy/AdvReac Type Severity Reaction Status Date / Time fish derived Allergy Severe Anaphylaxsi Unverified 12/03/19 10:37 s peanut Allergy Severe Anaphylaxsi Unverified 12/03/19 10:37 s General Stated Complaint: RespSymp BILLY: 3 Review of Systems Constitutional Constitutional: Denies fatigue, Denies fever(s), Denies headache(s) and Denies weakness Eyes Eyes: Denies change in vision ENT Ears, Nose, Mouth, and Throat: Denies headache(s), Denies neck pain and Denies sore throat Cardiovascular Cardiovascular: Reports chest pain and Reports dyspnea Respiratory Respiratory: Denies cough, Reports dyspnea and Denies wheezing Gastrointestinal Gastrointestinal: Denies abdominal pain, Denies nausea and Denies vomiting Musculoskeletal Musculoskeletal: Denies myalgias, Denies neck pain, Denies numbness and Denies tingling Integumentary/Breasts Skin/Breast: Denies rash Neurologic Neurologic: Denies headache(s), Denies numbness, Denies tingling and Denies weakness Endocrine Endocrine: Denies fatigue Allergic/Immunologic Allergic/Immunologic: Denies wheezing [facility] Medical History Asthma Depressive disorder Insomnia Lumbar disc disease Positive PPD Right sciatic nerve pain Seasonal affective disorder Substance abuse Surgical History History of anterior cruciate ligament surgery (~2000) Right - Meniscal Repair History of shoulder surgery (~2015) Left S/P laminectomy Family History Father Asthma Mother Hypertension Social History Smoking/Tobacco Use Status: Never Alcohol Intake: current Alcohol Intake frequency: a few times a month Alcohol type: beer Drug use: Current Sobriety Substance use type: former substance user Adopted: No Caregiver/Support person: No Household members: significant other Housing: house Do you need help understanding health information?: Never 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/[employer] Sexually active: Yes Do you think of yourself as: straight/heterosexual Current gender identity: male Do you feel safe at home: Yes Do you feel safe in your relationship?: Yes Exam Const General: cooperative, healthy appearing, comfortable and no acute distress Orientation: alert, awake and oriented x3 [facility] Head: normal to inspection, normocephalic and atraumatic Face and sinus: normal facial exam Mouth: moist mucous membranes Throat: posterior oropharynx normal Eyes General: appearance normal, both eyes and all related structures Alignment and Position: alignment normal Periorbital: periorbital findings normal Eyelids: eyelids normal Conjunctivae: conjunctivae normal Sclera: sclerae normal Cornea: corneas normal Pupils: PERRL EOM: EOM intact bilaterally Direct ophthalmoscopy: normal light reflex Neck Neck: normal visual inspection, full ROM, trachea midline and supple Chest Chest: normal inspection of the chest, no crepitus and tenderness costochondral junction (Left-sided) Resp Effort & Inspection: normal respiratory effort and able to speak in complete sentences Auscultation: clear to auscultation bilaterally Cardio Rate: regular rate Rhythm: regular rhythm GI Inspection: normal to inspection Palpation: soft, not firm, no guarding, not rigid and nontender Back/Spine/Pelvis Back: No back tenderness Skin General skin exam: no rashes or lesions noted Neuro General: patient alert, patient awake, moves all extremities and no focal motor deficits Cognition: normal cognition Speech: speech normal Gait: normal gait Motor: muscle tone normal throughout Sensory Exam: no sensory deficits noted Extrem General: normal to inspection, full ROM, capillary refill normal, no pedal edema and no calf tenderness Psych Appearance: grossly normal Mental Status: mental status grossly normal Course Vital Signs Vital signs: Vital Signs Temperature 36.8 C 12/03/19 10:31 Pulse 58 L 12/03/19 10:31 Respiratory Rate 14 12/03/19 10:31 Blood Pressure 142/83 H 12/03/19 10:31 Pulse Oximetry 100 12/03/19 10:31 Temperature 36.8 C 12/03/19 10:31 Temperature Source Temporal Artery Scan 12/03/19 10:31 Pulse 47 L 12/03/19 11:16 Pulse 48 L 12/03/19 11:30 Respiratory Rate 11 L 12/03/19 11:30 Respiratory Effort 12/03/19 10:40 Respiratory Depth Normal 12/03/19 10:40 Blood Pressure 113/93 H 12/03/19 11:16 Blood Pressure Mean 97 12/03/19 11:16 Blood Pressure Position Sitting 12/03/19 10:31 Pulse Oximetry 99 12/03/19 11:30 Oxygen Delivery Method Room Air 12/03/19 10:31 Oxygen Flow Rate 0 12/03/19 10:31 Pain Level 7 12/03/19 10:31 Comment 12/03/19 10:31 Lab/Test Results Lab/Test Results: Laboratory Tests Range/Units 12/03/19 12/03/19 12/03/19 10:50 10:50 10:50 WBC (4.4-10.8) 10^3/uL 6.41 RBC (4.36-5.78) 10^6/uL 5.64 Hgb (13.5-17.5) g/dL 14.8 Hct (40.0-50.0) % 47.1 MCV (80-95) fL 83.5 MCH (27.0-33.0) pg 26.2 L MCHC (32.0-36.0) % 31.4 L RDW (11.8-14.1) % 14.0 Plt Count (130-400) 10^3/uL 235 MPV (8.0-11.0) fL 9.0 Immature Gran % 0.5 Neutrophils % 84.3 Lymphocytes % 11.7 Monocytes % 3.1 Eosinophils % 0.2 Basophils % 0.2 Nucleated RBC % % 0 Absolute Neutrophils (1.2-6.7) 10^3/uL 5.41 Absolute Lymphocytes (1.2-3.4) 10^3/uL 0.75 L Absolute Monocytes (0.1-0.8) 10^3/uL 0.20 Absolute Eosinophils (0.0-0.7) 10^3/uL 0.01 Absolute Basophils (0.0-0.2) 10^3/uL 0.01 PT (9.3-11.0) sec 10.2 INR (0.9-1.1) 1.0 APTT (21.0-31.4) sec 26.0 D-Dimer (<500) ng/mlFEU 110 Sodium (136-145) mmol/L 139 Potassium (3.5-5.1) mmol/L 3.9 Chloride (98-107) mmol/L 102 Carbon Dioxide (21.0-32.0) mmol/L 30.9 Anion Gap (3-11) mmol/L 6.1 BUN (7-18) mg/dL 16 Creatinine (0.70-1.30) mg/dL 1.40 H Estimated GFR/1.73 m2 (mL/min/1.73m2) 53.86 Glucose (74-106) mg/dL 106 Calcium (8.5-10.1) mg/dL 9.4 Magnesium (1.8-2.4) mg/dL 2.1 Total Bilirubin (0.2-1.0) mg/dL 0.9 AST (15-37) U/L 28 ALT (16-63) U/L 42 Alkaline Phosphatase (46-116) U/L 46 Troponin I (<0.06) ng/mL < 0.05 Total Protein (6.4-8.2) g/dL 7.8 Albumin (3.4-5.0) g/dL 4.3
[2019-12-03] MEDS: Ketorolac 30 MG/ML VIAL IVP (12:27)
[2019-12-03] MEDS: Normal Saline 1,000 ML 1000 ML IV (12:27)
--- NOTE | 2019-12-03 13:45 | RT.EKG_ITS ---
APPROVED REPORT Exam: Resting ECG Patient Location: E HR:49 bpm ECG Measurements Heart Rate 49 AXIS WA 149 P 56 QRSd 90 QRS 62 QT 473 T 62 QTc 428 Conclusion Sinus bradycardia...rate< 60 Probable left ventricular hypertrophy...multiple LVH criteria. No STEMI. I have reviewed and interpreted ECG and agree with software generated interpretation.
[2019-12-03 14:41] LABS: Troponin I < 0.05 ng/mL (<0.06)
[2019-12-06 01:52] LABS: SARS-CoV-2 RNA Undetected (Undetected); SARS-CoV-2 Specimen Source Nasal
== END 2019-12-03 15:22 | disposition home or self-care (01) ==
PROVIDERS: Emergency Provider Physician Assistant; PCP Family Medicine
DX: R06.00 Dyspnea, unspecified (principal); R07.81 Pleurodynia; R00.1 Bradycardia, unspecified; J45.909 Unspecified asthma, uncomplicated; Z03.818 Encounter for observation for suspected exposure to other biological agents ruled out
CPT/HCPCS: 36415; 80053; 93005; 96361; 96374; 99285; U0003; 71045; 83735; 84484; 85025; 85379; 85610; 85730; 93010; J1885

== ENCOUNTER 2020-03-11 10:08 | Outpatient (CLI) | payer BC, SELFPAY ==
[2020-03-12 17:10] LABS: COVID-19 RT-PCR Result NEGATIVE (Negative)
== END 2020-03-11 10:28 ==
PROVIDERS: PCP Family Medicine
DX: Z11.52 Encounter for screening for COVID-19 (principal); Z01.818 Encounter for other preprocedural examination
CPT/HCPCS: U0003

== ENCOUNTER 2020-10-25 14:40 | Outpatient (REF) | payer BC, SELFPAY ==
[2020-10-26 02:28] LABS: COVID-19 RT-PCR UVMMC Result Negative (Negative)
== END 2020-10-25 14:41 | disposition home or self-care (01) ==
LOC: LBN 14:40
PROVIDERS: PCP Family Medicine; Visit Provider Physician Assistant
DX: Z20.822 Contact with and (suspected) exposure to COVID-19 (principal); J32.9 Chronic sinusitis, unspecified
CPT/HCPCS: U0003

== ENCOUNTER 2021-01-17 02:40 | Outpatient (CLI) | payer BC, SELFPAY ==
[2021-01-18 10:26] LABS: HIV-1/2 Ag & Ab Screen Negative (Negative)
[2021-01-18 11:48] LABS: Syphilis Serology (RPR) Negative (Negative)
[2021-01-18 14:13] LABS: Chlamydia Result Negative (Negative); GC Result Negative (Negative)
== END 2021-01-17 02:41 | disposition home or self-care (01) ==
LOC: LBO 02:41
PROVIDERS: PCP Family Medicine; Visit Provider Family Medicine
DX: Z72.51 High risk heterosexual behavior (principal); Z11.4 Encounter for screening for human immunodeficiency virus [HIV]; Z11.3 Encounter for screening for infections with a predominantly sexual mode of transmission
CPT/HCPCS: 36415; 87389; 87491; 87591; 86592

== ENCOUNTER 2021-01-27 01:13 | Outpatient (CLI) | payer BC, SELFPAY ==
[2021-01-29 12:31] LABS: Hepatitis C Ab w Rflx HCV PCR Negative (Negative)
== END 2021-01-27 01:14 | disposition home or self-care (01) ==
LOC: LBO 01:13
PROVIDERS: PCP Family Medicine; Visit Provider Family Medicine
DX: Z11.59 Encounter for screening for other viral diseases (principal)
CPT/HCPCS: 36415; 86803

== ENCOUNTER 2021-03-01 14:09 | Outpatient (CLI) | payer BC, SELFPAY ==
--- NOTE | 2021-03-01 14:00 | DI.RAD_ITS ---
Exam(s) XR SHOULDER RT COMPLETE 2+V EXAM: XR SHOULDER RT COMPLETE 2+V CLINICAL HISTORY: right shoulder pain. TECHNIQUE: 2D digital imaging was performed. COMPARISON: CR XR SHOULDER LT COMPLETE 2+V from 03/01/2021 FINDINGS: There is no evidence of fracture or dislocation or abnormal soft tissue calcifications in the subacro mial space. However, on the axial view there is a tiny calcification noted in the soft tissues immed iately adjacent to the greater tuberosity, this being the insertional site of the rotator cuff mechan ism. This may indicate an element of rotator cuff tendinitis. The subacromial space itself is not d iminished. There are no obvious degenerative changes in the glenohumeral joint. Mild degenerative c hanges in the AC joint. Bone density is normal. IMPRESSION: DATA REPOSITORY: RADIATION DOSE DELIVERED:
--- NOTE | 2021-03-01 14:00 | DI.RAD_ITS ---
Exam(s) XR SHOULDER LT COMPLETE 2+V EXAM: XR SHOULDER LT COMPLETE 2+V CLINICAL HISTORY: left shoulder pain. TECHNIQUE: 2D digital imaging was performed. COMPARISON: CR XR SHOULDER RT COMPLETE 2+V from 03/01/2021 FINDINGS: There is no evidence of fracture or dislocation or abnormal soft tissue calcifications. No joint spa ce narrowing. No osteophytes. The subacromial space is not diminished. There is no os acromiale. Coracoid process is intact. Bone density is normal. No osseous lesions. IMPRESSION: DATA REPOSITORY: RADIATION DOSE DELIVERED:
== END 2021-03-01 14:10 | disposition home or self-care (01) ==
LOC: DIORS 14:09
PROVIDERS: PCP Family Medicine; Referring Provider Family Medicine; Visit Provider Student in an Organized Health Care Education/Training Program
DX: M25.512 Pain in left shoulder (principal); M25.511 Pain in right shoulder
CPT/HCPCS: 73030

== ENCOUNTER 2021-10-08 17:07 | Emergency (ER) | payer BC, SELFPAY ==
[2021-10-08 17:13] VITALS: PULSE 75; RESP 18; TEMP 36.8; O2SAT 98
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
[2021-10-08] MEDS: oxyCODONE 5 MG TAB PO (18:09)
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
== END 2021-10-08 20:33 | disposition home or self-care (01) ==
PROVIDERS: Emergency Provider Physician Assistant; PCP Family Medicine
DX: S22.32XA Fracture of one rib, left side, initial encounter for closed fracture (principal); V86.56XA Driver of dirt bike or motor/cross bike injured in nontraffic accident, initial encounter
CPT/HCPCS: 99284; 71046; 71100

== ENCOUNTER 2021-10-17 03:37 | Outpatient (CLI) | payer BC, SELFPAY ==
[2021-10-17 11:52] LABS: ALT 35 U/L (16-63); AST 23 U/L (15-37); Albumin 4.2 g/dL (3.4-5.0); Alkaline Phosphatase 53 U/L (46-116); Anion Gap 6.5 mmol/L (3-11); BUN 15 mg/dL (7-18); Bilirubin, Total 0.6 mg/dL (0.2-1.0); CO2 29.5 mmol/L (21.0-32.0); CREATININE 1.4 mg/dL (0.70-1.30); Calcium 8.7 mg/dL (8.5-10.1); Calculated LDL 65 mg/dL (<100); Chloride 103 mmol/L (98-107); Cholesterol 146 mg/dL (<200); Estimated GFR 60.85 (mL/min/1.73m2); Glucose 98 mg/dL (74-106); HDL Cholesterol 73 mg/dL (40-60); Potassium 3.7 mmol/L (3.5-5.1); Sodium 139 mmol/L (136-145); Total Protein 7.8 g/dL (6.4-8.2); Triglyceride 41 mg/dL (<150)
== END 2021-10-17 03:38 | disposition home or self-care (01) ==
LOC: LBO 03:37
PROVIDERS: PCP Family Medicine; Visit Provider Family Medicine
DX: Z13.220 Encounter for screening for lipoid disorders (principal); S22.32XA Fracture of one rib, left side, initial encounter for closed fracture; Z13.1 Encounter for screening for diabetes mellitus
CPT/HCPCS: 36415; 80053; 80061; 82306

== ENCOUNTER 2021-11-24 00:17 | Outpatient (CLI) | payer BC, SELFPAY ==
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
== END 2021-11-24 00:37 ==
LOC: DI 00:17
PROVIDERS: PCP Family Medicine; Visit Provider Student in an Organized Health Care Education/Training Program
DX: S83.412A Sprain of medial collateral ligament of left knee, initial encounter; S83.512A Sprain of anterior cruciate ligament of left knee, initial encounter; S83.282A Other tear of lateral meniscus, current injury, left knee, initial encounter; S83.242A Other tear of medial meniscus, current injury, left knee, initial encounter; X58.XXXA Exposure to other specified factors, initial encounter
CPT/HCPCS: 73721

== ENCOUNTER 2021-12-15 07:32 | Day surgery (SDC) | payer BC, SELFPAY ==
[2021-12-15] VITALS (14 sets, daily range): BP systolic 92–129; BP diastolic 47–84; PULSE 44–69; RESP 8–22; TEMP 36.2–36.7; O2SAT 98–100; BMI 25.5
[2021-12-15] MEDS: Lactated Ringers 1,000 ML 30 ML IV (08:26)
--- NOTE | 2021-12-15 09:08 | W.ANESPRE ---
General Info Date of Service Date Performed: 12/15/21 Height: 5 ft 8 in Weight: 76.3 kg Body Mass Index (BMI): 25.5 Surgical Procedure: Operation Date: 12/15/21 10:10 Proposed Procedure Side Surgeon p Knee ACL Reconstruction, any indicated Meniscal, Chondral and Synovial Surgery Left Iban Willams MD Meds Allergies and Home Medications Allergies Allergy/AdvReac Type Severity Reaction Status Date / Time fish derived Allergy Severe Anaphylaxsi Verified 12/15/21 07:56 s peanut Allergy Severe Anaphylaxsi Verified 12/15/21 07:56 s cat dander Allergy Intermediate Wheezing Unverified 12/15/21 07:56 Home Medication Medication Instructions Recorded albuterol sulfate 90 mcg/actuation 2 puff inhalation QID PRN 03/28/21 aerosol inhaler (Ventolin HFA) shortness of breath #18 grams bupropion HCl 150 mg tablet,12 hr 150 mg PO BID #180 tabs 03/28/21 sustained-release tadalafil 5 mg tablet 5 mg PO DAILY PRN sexual activity 09/05/21 #90 tabs duloxetine 30 mg capsule,delayed 30 mg PO BID #120 caps 09/07/21 release finasteride 5 mg tablet 5 mg PO DAILY #90 tabs 09/07/21 fluticasone propionate 50 2 spray intranasal DAILY PRN 10/08/21 mcg/actuation nasal spray,suspension Current Visit Medications: Current Medications Generic Name Dose Route Start Last Admin Trade Name Freq PRN Reason Stop Dose Admin Hydromorphone HCl 2 - 4 mg 12/15/21 06:57 Hydromorphone 2 Mg Tab PO Q3H PRN PRN Ringer's Solution 1,000 mls @ 30 mls/hr 12/15/21 06:00 12/15/21 08:26 IV 12/15/21 16:00 30 mls/hr INFUSION PARAMJIT Administration Cefazolin Sodium/Dextrose 2 gm in 50 mls @ 100 mls/hr 12/15/21 06:00 Ancef Duplex IVPB 12/15/21 23:59 PREOP PARAMJIT IV Miscellaneous Supplies 1 each 12/15/21 06:00 Iv Access IV 12/15/21 23:59 DIRECTED PARAMJIT Sodium Chloride 0 ml 12/15/21 06:00 Normal Saline Flush 10 Ml Syr IV 12/15/21 23:59 PRN PRN Sodium Chloride 0 ml 12/15/21 06:00 Normal Saline 10 Ml Vial IJ 12/15/21 23:59 DIRECTED PRN Sterile Water 0 ml 12/15/21 06:00 Water,Injection,Sterile 10 Ml Vial IJ 12/15/21 23:59 DIRECTED PRN PFSH Active Problems Active Problems: Problem Status Onset Code Internal derangement of left knee M23.92 Left ACL tear S83.512A Tear of medial collateral ligament of left knee S83.412A Benign localized prostatic hyperplasia with lower urinary tract symptoms (LUTS) N40.1 Right rotator cuff tendonitis M75.81 Tendonitis of left rotator cuff M75.82 Benign prostate hyperplasia N40.0 Seasonal affective disorder Substance abuse F19.10 Right sciatic nerve pain M54.31 Lumbar disc disease M51.9 Insomnia G47.00 Depressive disorder F32.9 Asthma J45.909 Multiple rib fractures involving four or more ribs S22.49XA Medical History Medical History Positive PPD Medical History Comments:: 12/15/21:pt smoked marijuana 12/14/21 Surgical History Surgical History History of anterior cruciate ligament surgery (~2000) Right - Meniscal Repair History of shoulder surgery (~2015) Left S/P laminectomy Tobacco Smoking/Tobacco Use Status: Never Passive smoking exposure: No Second hand exposure: No Alcohol Alcohol Intake: current Alcohol intake frequency: holidays/special occasions only Alcohol type: beer Substance Use Substance use: Current Sobriety Substance use type: former substance user Details: pt smoked marijuana 12/14/21 Vital Signs and Lab Results Vital Signs Most Recent Vital Signs in EMR: Most Recent Vital Signs Temp Pulse Resp BP Pulse Ox 36.7 C 69 16 118/83 99 12/15/21 08:04 12/15/21 08:04 12/15/21 08:04 12/15/21 08:04 12/15/21 08:04 Lab Results Blood Type / Crossmatch: No Data to Display Complete Blood Count: No Data to Display Complete Metabolic Panel: No Data to Display Liver Function Panel: No Data to Display Coagulation Panel: No Data to Display Cardiac Panel: No Data to Display Arterial Blood Gas: No Data to Display Venous Blood Gas: No Data to Display Pancreas Panel: No Data to Display Thyroid Panel: No Data to Display Infectious Disease: No Data to Display Blood Cultures: No Data to Display Toxicology Panel: No Data to Display Imaging and Studies Imaging and Studies Study information below may be from another EMR and interpreted by another provider. Please see original notes in EMR for more complete details. EKG Summary: 12/03/2019: Conclusion Sinus bradycardia...rate< 60 Probable left ventricular hypertrophy...multiple LVH criteria. No STEMI. Anesthesia Assessment and Plan Anesthesia History Personal History: No History of Anesthesia Complications Family History: No Family History of Anesthesia Complications Exercise Tolerance Exercise Tolerance: Metabolic Equivalents>4 Pertinent Negatives Pertinent Negatives: No Symptoms of GERD, No Major Cardiovascular Symptoms or Complaints and No Major Pulmonary Symptoms or Complaints Cardiac & Pulmonary Exam Cardiac Exam: Normal S1/S2 Heart Sounds Pulmonary Exam: Clear Bilateral Breath Sounds Implantable Cardiac Device Does patient have a Pacemaker or an ICD?: No Airway Exam Known Difficult Airway: No Mallampati Class: 1 Mouth Opening: Normal (> 3cm) Thyromental Distance: Greater than 3 cm Neck Range of Motion: Full ROM Neck Circumference: Normal Teeth Condition: Normal Dentition ASA Classification ASA Score: ASA 2 Emergency Case?: No NPO Status NPO Status: NPO Clears >2 hours, Solids >8 hours Anesthesia Plan Resuscitation Status: Full Code Anesthesia Technique: General Anesthesia Airway Planned: Endotracheal Tube Pain Management: Surgeon and patient request nerve block Monitors Used: Standard Monitors Preoperative Comments:: Rescue Block
[2021-12-15] MEDS: ceFAZolin 2 GM/50 ML BAG IVPB (11:00)
--- NOTE | 2021-12-15 12:00 | ROE_ITS ---
Date of service: 12/15/21 Time of Service: 12:00 Operative Note Operative Note DATE OF PROCEDURE: 12/15/21 PRE-OP DIAGNOSIS: Left knee: 1. ACL rupture 2. Medial & lateral meniscus tears 3. MCL sprain POST-OP DIAGNOSIS: other Left knee: 1. ACL rupture 2. Healed medial meniscus 4. Complex posterior horn lateral meniscus tear 3. Healed MCL sprain PROCEDURE: Left knee: 1. ACL reconstruction, CPT #70427: Quadriceps allograft 2. Lateral meniscus repair, CPT #24047 SURGEON: Iban Willams COMBINATION WINDOW INSTALLER: Brianna Karimi ANESTHESIA TYPE: Local By Surgeon and General LMA/ETT Refer to Anesthesia Record ESTIMATED BLOOD LOSS: 10 TOURNIQUET TIME: 0 COMPLICATIONS: None Patient was transported to: PACU Patient's condition: stable Implants: Arthrex ACL TightRope II RT and ABS with 8x12 mm cortical button QuadLink pre-sutured quadriceps allograft: 10 x68 mm Indications: Please see complete medical record for details. Findings: Exam under anesthesia: Full ROM, grossly positive Blessing, stable MCL. Stable LCL and posterior lateral corner. Arthroscopic findings: Complete midsubstance to proximal ACL disruption. Largely healed medial meniscus meniscocapsular disruption. Complex red-white into red zone posterior horn lateral meniscus tear. Intact articular cartilage throughout. Procedure Description: In the operating room, general anesthesia was induced. The patient was positioned supine on the operating room table. All bony prominences were well- padded. Preoperative antibiotics were administered. The knee was prepped and draped in the usual sterile fashion. The correct patient, procedure, and side of the procedure were all verified prior to incision. Exam under anesthesia was performed. 30 cc of 0.25% bupivacaine containing epinephrine was infiltrated about the planned anteromedial, anterolateral, lateral distal femoral, and pretibial surgery sites. The standard high and tight anterolateral and anteromedial portals were established and a complete diagnostic arthroscopy was performed with relevant findings detailed above. A passport cannula was inserted in both the anteromedial and anterolateral portals. The medial meniscus was thoroughly probed and stable. Lateral meniscus posterior horn tear was probed and felt to be amenable to repair given the fairly peripheral tear zone, intact articular cartilage in the lateral comp artment, and otherwise would require fairly significant meniscectomy. The knee scorpion was used to pass a mini suture tape circumferentially around the tear near the popliteal hiatus. This was secured with [facility] arthroscopic knots burying the knot peripherally. This was repeated with an additional repair stitch more central in the posterior horn. The repaired meniscus was probed and stable. In the intercondylar area, the ACL remnant was removed leaving enough footprint on the femur and tibia to localize anatomic socket placement. A small notchplasty was performed to allow proper visualization of the back wall. The graft was measured and prepared on the back table. The TightRope II BTB and TightRope II ABS adjustable-loop cortical suspensory fixation implants were loaded on QuadLink pre-sutured quadriceps allograft. The femoral and tibial ends each measured 10 mm. The graft was marked at 20 mm from each end. On the ABS side, the tensioning sutures were marked and a shuttle suture was added. The graft was manually tensioned and the construct did not demonstrate any elongation. The graft was then compressed in a graft tube and covered with vancomycin soaked sponges. The femoral guide was then placed through the anterolateral portal carefully targeting the appropriate anatomic ACL origin. The outer 9 mm diameter of the guide was positioned with a few millimeters of space between the proximal and posterior articular margins. On the lateral thigh, drill guide position and angle adjusted to about 60 degree angle to the longitudinal axis of the femur in the coronal plane and 20 degree angle to the trans-epicondylar axis in the axial plane to create the most optimal femoral socket. Knife and snap were used to open the skin and IT band and placed the drill guide on bone while maintaining appropriate position on the lateral wall. The tunnel length was noted to be used for marking and passing the femoral button. The flip cutter was then drilled to the appropriate location. The drill guide malleted 7 mm into the cortex. The remainder of the targeting guide removed. The FlipCutter was deployed to 10 mm and retrograde reaming done to a depth of 30 mm. Bony debris was removed with the shaver. The flip cutter was then closed, withdrawn, and a FiberStick used to pass a #2 FiberWire shuttle stitch, which was withdrawn out the anterolateral portal. The tibial guide was then used to target the anatomic ACL insertion through the anteromedial portal. The drill angle adjusted to 57.5 and a pretibial incision made. The drill guide was placed on bone, tunnel length noted, and the flip cutter drilled to the appropriate location. The drill guide malleted 7 mm into the cortex. The remainder of the targeting guide removed. The FlipCutter was deployed to 10mm and retrograde reaming done to a depth of 35mm. Bony debris was removed with the shaver. The flip cutter was then closed, withdrawn, and a FiberStick used to pass a #2 FiberWire shuttle stitch, which was withdrawn out the anteromedial portal. The mechanical shaver was used to remove bone debris as well as chamfer and remove soft tissue from the edges of the sockets. A femoral shuttle sutures were withdrawn out the anterior medial portal. The PassPort was removed. This portal dilated to accommodate the graft size. The graft was brought over to the knee and the femoral sutures shuttled out the lateral thigh and advanced until the button was near the far cortex. Under arthroscopic visualization with the knee slightly hyperflexed, and the button was then passed and flipped on the far cortex. Counter traction was then maintained on the tibial side of the graft while it was carefully advanced into the knee and then about 15 mm into the femoral socket. The tibial sutures were then shuttled through the tibial tunnel and passing stitch removed while carefully noting the tensioning stitches. The graft was then dunked about 15 mm into the tibial socket. 8x12mm ABS button was then loaded to the ABS loop and tension sutures used to bring the cortical button down to bone. The graft was advanced and then provisionally tensioned on both the femoral and tibial sides. The knee was then cycled 22 times, tensioning rechecked, and final tightening done with the knee in full extension with a moderate reverse Blessing maintained. The graft position and tension were appropriate. There was no impingement in full extension. Blessing exam was rock stable. MCL remained stable. Femoral passing sutures were removed. Backup knots were then tied on both sides and suture tails cut. The knee and all portals were copiously irrigated and then knee drained of arthroscopic fluid. 3-0 Monocryl was used to close the portals and small incisions in a buried interrupted fashion. Mastisol, Steri-Strips, Xeroform, 4 x 4 gauze, and sterile soft roll was applied. The extremity was wrapped gently with an Beck bandage. A soft knee immobilizer placed. The patient awoke from anesthesia without complication and was transferred to the recovery room in a stable condition.
--- NOTE | 2021-12-15 14:07 | W.PM.DSUDISC ---
Date of service: 12/15/21 Time of Service: 10:50 Discharge Plan Disposition Patient Disposition: HOME Condition: Good Discharge Details Reason For Visit: Left knee surgery Attending Provider: Iban Willams Primary Care Provider: Musa Hylton Home Meds and New Rx's Prescriptions: New aspirin 81 mg tablet,delayed release (DR/EC) 81 mg PO DAILY 14 Days Qty: 14 0RF naproxen 250 mg tablet 250 - 500 mg PO BID PRNQty: 40 0RF Rx Instructions: take with a meal hydromorphone [Dilaudid] 2 mg tablet 2 - 4 mg PO Q4H MDD 12 mg PRN (Reason: moderate to severe pain) Qty: 18 0RF Continued finasteride 5 mg tablet 5 mg PO DAILY Qty: 90 3RF duloxetine 30 mg capsule,delayed release(DR/EC) 30 mg PO BID Qty: 120 0RF albuterol sulfate [Ventolin HFA] 90 mcg/actuation HFA aerosol inhaler 2 puff INHALATION QID PRN (Reason: shortness of breath) Qty: 18 12RF bupropion HCl 150 mg tablet sustained-release 12 hr 150 mg PO BID Qty: 180 3RF Label Comments: Pt takes 300mg Daily, 10/08/21 tadalafil 5 mg tablet 5 mg PO DAILY PRN (Reason: sexual activity) Qty: 90 3RF Rx Instructions: administer approximately 30min before sexual activity; do not use more than 1 dose per 24hrs fluticasone propionate 50 mcg/actuation [place],Suspension 2 spray INTRANASAL DAILY PRN Rx Instructions: administer into each nostril Discharge Instructions Additional Instructions: Surgery: Left knee arthroscopy with quadriceps allograft ACL reconstruction and lateral meniscus repair Activity: Weightbearing as tolerated with the knee in full extension for 6 weeks. Use knee brace and crutches as needed for a few weeks. Restore full extension as soon as possible. Gentle progressive flexion: Limit 0-90 degrees for 6 weeks. Limit flexion 120 degrees weeks 6?8. May start spin/bike after 8 weeks. Closed?chain strengthening after 10 weeks. Avoid weighted deep flexion for 12 weeks. Remainder as per standard ACL reconstruction protocol. A physical therapy prescription will be sent electronically to start in 2 to 3 weeks. Prescriptions: Aspirin 81 mg take 1 daily to prevent a blood clot for 14 days Naproxen 250 mg take 1-2 every 12 hours with a meal as needed for moderate pain Dilaudid/hydromorphone 2 mg take 1-2 every 4-6 hours as needed for severe pain You may use [id number] Tylenol (acetaminophen) as needed for mild pain. These pain medications may be taken all at once or in different combinations as needed. Also, recommend Colace (docusate) as a stool softener as surgery and pain medicine cause constipation. You may try [id number] diphenhydramine (Benadryl) 25-50 mg nightly as a sleep aid Dressings: Leave dressing in place for 5 days. May then remove and leave open to air or cover incisions with Band-Aids. May shower after 7 days. Follow-up: 10-[address] Willams You may take off the leg compression stockings this evening at home. You may also leave them on a few days longer if you have a history of leg swelling or edema. Let us know right away if you develop any redness, drainage, fevers, chest pain, or trouble breathing. Do not drink alcohol or drive for at least 24 hours after anesthesia. Please call the office during business hours with any questions or concerns. Discharge Orders Discharge Orders: Discharge Order (Routine); Ordered 12/15/21 Ordered By: Iban Willams DS: Diagnosis Discharge Diagnosis (1) Left ACL tear: Status: Acute
[2021-12-15] MEDS: Normal Saline 10 ML VIAL IJ (15:00)
[2021-12-15] MEDS: HYDROmorphone 2 MG/ML SYR IVP ×3 (15:01→15:18)
[2021-12-15] MEDS: fentaNYL 100 MCG/2 ML VIAL IVP (15:26)
[2021-12-15] MEDS: HYDROmorphone 2 MG TAB PO ×2 (16:15→16:58)
--- NOTE | 2021-12-15 16:52 | W.ANESPOSTOP ---
Postoperative Evaluation Date, Time and Location Date Performed: 12/15/21 Time Performed: 16:15 Patient Location: PACU Vital Signs Most Recent Imported Vital Signs: Most Recent Vital Signs Temp Pulse Resp BP Pulse Ox 36.3 C L 56 L 16 116/72 100 12/15/21 16:09 12/15/21 16:09 12/15/21 16:09 12/15/21 16:09 12/15/21 16:09 Pain Score Most Recent Pain Score: Most Recent Pain Score Pain Level 6 12/15/21 16:11 Assessment Mental Status: Awake (Alert & Oriented to Patient Baseline) Airway and Respiratory Function: Patent airway with normal (patient baseline) respiratory exam Cardiovascular Function: Hemodynamically Stable Hydration Status: Adequately Hydrated Nausea & Vomiting: No Nausea or Vomiting Pain: Pain is Moderate or Severe (Patient has been offered a block 5 times by [address] Willams patiemt continues to refuse. Prefers to use oral pain meds. ) Postoperative Pain Management: Pain being addressed with medication Peripheral Nerve Block: Patient did not receive a nerve block
== END 2021-12-15 17:40 | disposition home or self-care (01) ==
LOC: SUR 07:32
PROVIDERS: PCP Family Medicine; Visit Provider Student in an Organized Health Care Education/Training Program
PROC: (CPT 29888; principal; 2021-12-15 10:00)
DX: S83.512A Sprain of anterior cruciate ligament of left knee, initial encounter (principal); S83.272A Complex tear of lateral meniscus, current injury, left knee, initial encounter; X58.XXXA Exposure to other specified factors, initial encounter
CPT/HCPCS: 29888; 29882; J0131; J0690; J1100; J1170; J1885; J2250; J2405; J3010

== ENCOUNTER 2022-04-19 23:46 | Emergency (ER) | payer BC, SELFPAY ==
--- NOTE | 2022-04-19 23:45 | RT.EKG_ITS ---
APPROVED REPORT Exam: Resting ECG Reason for Exam: dizziness Patient Location: E HR:73 bpm ECG Measurements Heart Rate 73 AXIS WA 178 P 71 QRSd 96 QRS 71 QT 401 T 58 QTc 442 Conclusion Sinus rhythm...normal P axis, V-rate 60- 99 Probable left atrial enlargement...P >50mS, <-0.10mV V1 Probable left ventricular hypertrophy...multiple LVH criteria Physician: no stemi, potential LVH, mild elevation in V1 and V2, but this is unchanged compared to pr ior from 12/03/19
[2022-04-19 23:47] VITALS: BP 161/73; PULSE 83; RESP 16; TEMP 37.5; O2SAT 99
[2022-04-19 23:50] VITALS: BP 161/73; PULSE 80; PULSE 81; RESP 18
[2022-04-19 23:51] VITALS: PULSE 83; RESP 18; O2SAT 99
[2022-04-20] VITALS (19 sets, daily range): BP systolic 123–138; BP diastolic 60–73; PULSE 56–85; RESP 12–23; O2SAT 95–100
--- NOTE | 2022-04-20 00:02 | W.ED.GENAD ---
Discharge Plan Disposition Patient Disposition: Home Condition: Good Discharge Details Clinical Impression: Light-headedness Primary Care Provider: Musa Hylton ED Provider: Juan Francisco Fu Home Meds and New Rx's Prescriptions: Discontinued prednisone 20 mg tablet See Rx Instructions PO DAILY Qty: 40 0RF Rx Instructions: t3 tabs for 7 days, then take 2 tabs for 5 days, then take 1 tab for 5 days, then t0.5 for 5 days, then stop orally daily; No Action oxycodone-acetaminophen [Percocet] 10-325 mg tablet 1 tab PO Q8H MDD 30mg PRN (Reason: severe pain) Qty: 15 0RF Rx Instructions: Use sparingly, and monitor bowels. tadalafil 5 mg tablet 5 mg PO DAILY PRN (Reason: sexual activity) Qty: 30 6RF Rx Instructions: administer approximately 30min before sexual activity; do not use more than 1 dose per 24hrs albuterol sulfate [Ventolin HFA] 90 mcg/actuation HFA aerosol inhaler 2 puff INHALATION QID PRN (Reason: shortness of breath) Qty: 18 12RF lurasidone 60 mg tablet 60 mg PO DAILY Qty: 90 3RF Hold Instructions: Home Medication placed on hold at Doctor's office Rx Instructions: must administer with food (at least 350 calories) lurasidone [Latuda] 60 mg tablet 60 mg PO DAILY Patient Comments: TAKE 1 TABLET BY MOUTH DAILY WITH FOOD 350 CALORIES Discharge Instructions Instructions: Near Syncope (ED) Additional Instructions: At this time I suspect that your episode of lightheadedness was secondary to a combination of your medication, as well as mild dehydration. However as we discussed together out of an abundance of precaution it is important to continue the outpatient follow-up for this. Please contact the radiology department and respiratory therapy department at the numbers provided to set up your ultrasound of your heart and your Holter monitor. Please drink plenty of fluids and stay well-hydrated. Avoid any aggressive physical activity for the next 72 hours. If you notice any worsening of your symptoms, or any new symptoms such as vomiting, diarrhea, fever, chills, shortness of breath, chest pain, numbness, weakness, or fainting , please return immediately to the emergency department for reevaluation. Please follow up with your primary care provider as soon as possible for reassessment and reevaluation. As always, it was a pleasure participating in your medical care today. Referrals: Musa Hylton DO [Primary Care Provider] - Discharge Orders Other Ambulatory Orders: Holter Monitor (Routine) Timeframe: 1 Week Facility: [facility] - Location: Respiratory Therapy Ordered By: Juan Francisco Fu Discharge Data Discharge Date/Time-TO BE ENTERED AT DEPARTURE: 04/20/22 02:30 Medical Decision Making 51-year-old -[place] male with past medical history of asthma, BPH, seasonal affective disorder, bipolar type II, who presents today for lightheadedness and chest pressure. Patient states that he was planning on starting intimacy with his , when he became lightheaded, felt shaky, and developed mild chest pressure and pounding. He was very anxious during this episode. They called 911, but because of low cell phone service they had to drive out down the road. When EMS arrived on the road they met him and he was still notably anxious and feeling lightheaded. However symptoms resolved shortly thereafter. Currently he is symptom-free. He denies any current chest pain, tearing or ripping sensation, numbness tingling or weakness. He denies any syncope. He denies having any significant events like this in the past, however he does state that occasionally in the past he has had mild episodes where he felt like his blood sugar was low which was resolved by eating food. Patient does take a daily tadalafil, and took this as directed at his regular time. He denies any personal history or family history of cardiac disease or dysrhythmia. No other complaints at this time. No other modifying factors. Exam demonstrates a well-appearing male, no focal deficits. Blood pressure and heart rate stable. Bedside ultrasound demonstrates an excellent ejection fraction, no evidence of severe profound hypertrophy, EKG is normal aside for evidence of potential LVH on EKG. differential includes dysrhythmia, dehydration, potential side effect from the tadalafil. We will rehydrate, evaluate for concerning etiologies, monitor closely and reassess. 5:07 AM Laboratory work-up has returned negative, initial and repeat troponin are normal. D-dimer is normal. Symptoms inconsistent with PE or dissection clinically. EKG does show evidence of questionable LVH, however bedside echo only shows minimal thickening, no evidence of significant volume restriction on limited bedside echo. After rehydration, patient feels well. He states that all symptoms have resolved. proBNP normal suggesting no signs of heart strain. I do suspect that the patient got lightheaded secondary to a combination of his tadalafil, in conjunction with being slightly dehydrated and drinking less today. However out of an abundance of precaution we will place an order for an outpatient Holter, as well as a formal outpatient echo. Patient is asking to be discharged. He does not wish to stay any longer or overnight. I do feel that this is reasonable. We did have a long discussion about the plan moving forward, and he and his understand. I have extensively reviewed the treatment plan and discharge instructions with the patient. I have addressed all patient concerns at this time. The patient was made aware of what symptoms to monitor for that would warrant a return to the emergency department. Discussed the plan with the patient, they demonstrate verbal understanding and agreement with our assessment and plan at this time. The documentation in this chart was dictated using [employer] dictation software. Please excuse any dictation errors. FINDINGS: Lungs: There is no evidence of focal pulmonary consolidation. Pleural spaces: No pleural effusion or pneumothorax. Heart/Mediastinum: The heart and mediastinum are normal in size. Bones/joints: No acute fracture. There are some old left rib fracture deformities. IMPRESSION: No acute findings. Thank you for allowing us to participate in the care of your patient. Dictated and Authenticated by: Torito Guy MD 04/20/2022 3:47 AM Eastern Time ([place] & [place]) HPI General Date/Time Provider Initiated Documentation: 04/19/22 23:49. HPI Narrative: 51-year-old -[place] male with past medical history of asthma, BPH, seasonal affective disorder, bipolar type II, who presents today for lightheadedness and chest pressure. Patient states that he was planning on starting intimacy with his , when he became lightheaded, felt shaky, and developed mild chest pressure and pounding. He was very anxious during this episode. They called 911, but because of low cell phone service they had to drive out down the road. When EMS arrived on the road they met him and he was still notably anxious and feeling lightheaded. However symptoms resolved shortly thereafter. Currently he is symptom-free. He denies any current chest pain, tearing or ripping sensation, numbness tingling or weakness. He denies any syncope. He denies having any significant events like this in the past, however he does state that occasionally in the past he has had mild episodes where he felt like his blood sugar was low which was resolved by eating food. Patient does take a daily tadalafil, and took this as directed at his regular time. He denies any personal history or family history of cardiac disease or dysrhythmia. No other complaints at this time. No other modifying factors. Related Data Home Medications Medication Instructions Recorded Confirmed oxycodone-acetaminophen 10 mg-325 1 tab PO Q8H PRN severe pain #15 04/10/22 04/19/22 mg tablet (Percocet) tabs albuterol sulfate 90 mcg/actuation 2 puff inhalation QID PRN 04/12/22 04/19/22 aerosol inhaler (Ventolin HFA) shortness of breath #18 grams lurasidone 60 mg tablet 60 mg PO DAILY #90 tabs 04/12/22 04/19/22 tadalafil 5 mg tablet 5 mg PO DAILY PRN sexual activity 04/12/22 04/19/22 #30 tabs lurasidone 60 mg tablet (Latuda) 60 mg PO DAILY 04/19/22 04/19/22 Previous Rx's Medication Instructions Recorded oxycodone-acetaminophen 10 mg-325 1 tab PO Q8H PRN severe pain #15 04/10/22 mg tablet (Percocet) tabs albuterol sulfate 90 mcg/actuation 2 puff inhalation QID PRN 04/12/22 aerosol inhaler (Ventolin HFA) shortness of breath #18 grams lurasidone 60 mg tablet 60 mg PO DAILY #90 tabs 04/12/22 tadalafil 5 mg tablet 5 mg PO DAILY PRN sexual activity 04/12/22 #30 tabs Allergies Allergy/AdvReac Type Severity Reaction Status Date / Time fish derived Allergy Severe Anaphylaxsi Verified 04/19/22 23:52 s peanut Allergy Severe Anaphylaxsi Verified 04/19/22 23:52 s cat dander Allergy Intermediate Wheezing Verified 04/19/22 23:52 General Stated Complaint: Dizzy/Sync BILLY: 2 Review of Systems All systems reviewed & are unremarkable except as noted in HPI and below PFSH All Active Problems (Updated 04/20/22 @ 01:57 by Juan Francisco Fu DO) Light-headedness (Acute) Xerosis of skin (Acute) Bipolar II disorder (Acute) Acute lateral meniscus tear of left knee (Acute) Left ACL tear (Acute) Tear of medial collateral ligament of left knee (Acute) Benign localized prostatic hyperplasia with lower urinary tract symptoms (LUTS) (Acute) Right rotator cuff tendonitis (Acute) Tendonitis of left rotator cuff (Acute) Benign prostate hyperplasia (Chronic) Seasonal affective disorder (Acute) Substance abuse (Acute) Right sciatic nerve pain (Acute) Lumbar disc disease (Acute) Insomnia (Acute) Depressive disorder (Chronic) Asthma (Chronic) Multiple rib fractures involving four or more ribs (Acute) 12/01/2018 Medical History Positive PPD Surgical History History of anterior cruciate ligament surgery (~2000) Right - Meniscal Repair History of shoulder surgery (~2015) Left S/P laminectomy Family History Father Asthma Mother Hypertension Social History Smoking/Tobacco Use Status: Never Second Hand Exposure: No Smoking risk assessment performed?: Yes Alcohol Intake: current Alcohol Intake frequency: holidays/special occasions only Alcohol type: beer Drug use: Current Sobriety Substance use type: former substance user Details: pt smoked marijuana 12/14/21 Adopted: No Caregiver/Support person: No Foster care: No Household members: none Housing: house Number of Children: 1 Communication Needs: None Do you need help understanding health information?: Never 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[employer] Pets and animals: Yes Sexually active: Yes Do you think of yourself as: straight/heterosexual Current gender identity: male What is your relationship status?: refused to answer How often do you talk on the phone with friends or family?: once per week How often do you get together with friends or relatives?: once per week How often do you attend yarsanism or jewish services?: decline to answer Do you belong to any clubs or organized social groups?: no Panel score (0-1 are the most socially isolated patients): 0 What type of physical activity do you participate in: running Duration: 15-30 minutes/day Frequency: 3-4 times per week Special bailey needs: No Seatbelt use: always Helmet use: Yes Helmet use: always Drive intox or ride w/intox catering driver: No Do you feel safe at home: Yes Do you feel safe in your relationship?: Yes Exam Narrative Exam Narrative: 1.Const: Well-nourished, Well-developed, appearing stated age 2.Eyes: PERRL, no conjunctival injection, and symmetrical lids. 3.ENT: Atraumatic external nose and ears. Moist MM. Neck: Symmetric, trachea midline, No thyromegaly. 4.CVS: +S1/S2, No murmurs or gallops. Peripheral pulses 2+ and equal in all extremities. Brisk capillary refill in all extremities. 5.RESP: Unlabored respiratory effort. Clear to auscultation bilaterally. No wheezes rales or rhonchi 6.GI: Soft, Nontender/Nondistended, No hepatosplenomegaly. No guarding or rebound. 7.MSK: Normocephalic/Atraumatic, Extremities w/o deformity or ttp No cyanosis or clubbing, Normal movement of all extremities 8.Skin: Warm, Dry. No rashes or lesions. 9.Neuro: family service worker II-XII grossly intact. Sensation grossly intact, no focal neurologic deficits. 10.Psych: (AAO) x3. Appropriate mood and affect Course Vital Signs Vital signs: Vital Signs Temperature 37.5 C 04/19/22 23:47 Pulse 83 04/19/22 23:47 Respiratory Rate 16 04/19/22 23:47 Blood Pressure 161/73 H 04/19/22 23:47 Pulse Oximetry 99 04/19/22 23:47 Temperature 37.5 C 04/19/22 23:47 Temperature Source Temporal Artery Scan 04/19/22 23:47 Pulse 83 04/19/22 23:47 Respiratory Rate 16 04/19/22 23:47 Respiratory Effort Normal 04/19/22 23:47 Blood Pressure 161/73 H 04/19/22 23:47 Blood Pressure Position Sitting 04/19/22 23:47 Pulse Oximetry 99 04/19/22 23:47 Pain Level 0 04/19/22 23:47 POCUS Exam (ED) Limited Cardiac Exam DATE OF EXAM: 04/20/22 TIME OF EXAM: 00:24 PROVIDER THAT PERFORMED THE STUDY: Juan Francisco Fu REASON FOR EXAM: Chest pain VISUALIZED STRUCTURES: Left atrium, Left ventricle, Right ventricle and Interventricular septum VIEW OBTAINED: Parasternal long-axis and Parasternal short-axis PERTINENT FINDINGS/IMPRESSION: No apparent abnormalities Exam complete
[2022-04-20 00:09] LABS: Abs Immature Grans 0.02 10^3/uL (0.0-0.06); Absolute Basophil Count 0.03 10^3/uL (0.0-0.2); Absolute Eosinophil Count 0.27 10^3/uL (0.0-0.7); Absolute Lymphocyte Count 2.33 10^3/uL (1.2-3.4); Absolute Monocyte Count 0.65 10^3/uL (0.1-0.8); Absolute Neutrophil Count 5.77 10^3/uL (1.2-6.7); Basophils % 0.3; HCT 43.9 % (40.0-50.0); HGB 13.9 g/dL (13.5-17.5); Immature Grans % 0.2; Lymphocytes % 25.7; MCH 25.9 pg (27.0-33.0); MCHC 31.7 % (32.0-36.0); MCV 82 fL (80-95); MPV 9.1 fL (8.0-11.0); Monocytes % 7.2; Neutrophils % 63.6; Platelet Count 203 10^3/uL (130-400); RBC 5.36 10^6/uL (4.36-5.78); RDW 13.9 % (11.8-14.1); RDW-SD 41.4 fL; WBC 9.07 10^3/uL (4.4-10.8)
[2022-04-20] MEDS: Normal Saline 1,000 ML 1000 ML IV (00:12)
[2022-04-20 00:28] LABS: PTT Activated 24.2 sec (21.5-31.9); Prothrombin Time 9.9 sec (9.3-11.0)
[2022-04-20 00:32] LABS: ALT 25 U/L (16-63); AST 15 U/L (15-37); Albumin 4.1 g/dL (3.4-5.0); Alkaline Phosphatase 54 U/L (46-116); Anion Gap 8.7 mmol/L (3-11); BUN 15 mg/dL (7-18); Bilirubin, Total 0.5 mg/dL (0.2-1.0); CO2 29.3 mmol/L (21.0-32.0); CREATININE 1.3 mg/dL (0.70-1.30); Calcium 8.9 mg/dL (8.5-10.1); Chloride 103 mmol/L (98-107); Estimated GFR 66.51 (mL/min/1.73m2); Glucose 128 mg/dL (74-106); NT-proBNP 14 pg/mL (<300); Potassium 3.5 mmol/L (3.5-5.1); Sodium 141 mmol/L (136-145); TSH (W/Ref FT4) 1.23 uIU/mL (0.36-3.74); Total Protein 7.5 g/dL (6.4-8.2); Troponin I < 50 ng/L (<or=60)
[2022-04-20 00:44] LABS: ETHANOL BLOOD < 3.0 mg/dL (<10)
--- NOTE | 2022-04-20 01:00 | DI.RAD_ITS ---
Exam(s) XR CHEST 2V PA LATERAL EXAM: XR CHEST 2V PA LATERAL CLINICAL HISTORY: chest pressure, central. TECHNIQUE: 2D digital imaging was performed. COMPARISON: CR,XR XR RIBS LT W PA LAT CHEST from 10/08/2021 FINDINGS: 2 views: Heart size is normal. The mediastinum is not widened. Lungs are clear. No infiltrates nor pleural effusions. Left rib abnormality again noted, unchanged and probably healed fracture. No obvious acute fractures evident on this chest study. IMPRESSION: No acute pulmonary findings. DATA REPOSITORY: RADIATION DOSE DELIVERED:
[2022-04-20 01:01] LABS: D-Dimer 182 ng/mlFEU (<500)
--- NOTE | 2022-04-20 02:07 | NUR.NOTE ---
requisitions faxed to DI for echocardiogram and RT for 48 hour holter monitor.Nursing Note:
[2022-04-20 02:14] LABS: Troponin I < 50 ng/L (<or=60)
--- NOTE | 2022-04-20 03:47 | DI.VRAD_ITS ---
PROCEDURE INFORMATION: Exam: XR Chest Exam date and time: 04/20/2022 1:18 AM Age: 51 years old Clinical indication: Pain; Chest pressure TECHNIQUE: Imaging protocol: Radiologic exam of the chest. Views: 2 views. COMPARISON: CR XR RIBS LT W PA LAT CHEST 10/08/2021 6:16 PM FINDINGS: Lungs: There is no evidence of focal pulmonary consolidation. Pleural spaces: No pleural effusion or pneumothorax. Heart/Mediastinum: The heart and mediastinum are normal in size. Bones/joints: No acute fracture. There are some old left rib fracture deformities. IMPRESSION: No acute findings. Dictated and Authenticated by: Torito Guy MD. Ordering:CELSA Chicas MD
== END 2022-04-20 02:30 | disposition home or self-care (01) ==
LOC: ER 04-20 02:12
PROVIDERS: Emergency Provider Student in an Organized Health Care Education/Training Program; PCP Family Medicine
DX: R42 Dizziness and giddiness (principal); R07.89 Other chest pain; Z79.899 Other long term (current) drug therapy
CPT/HCPCS: 36415; 80053; 93005; 93308; 96360; 99285; 71046; 80320; 83880; 84443; 84484; 85025; 85379; 85610; 85730; 93010; 99284

== ENCOUNTER 2022-06-18 04:56 | Outpatient (CLI) | payer BC, SELFPAY ==
[2022-06-18 14:19] LABS: Lithium 0.9 mmol/l (0.6-1.2)
== END 2022-06-18 04:57 | disposition home or self-care (01) ==
PROVIDERS: PCP Family Medicine; Visit Provider Family Medicine
DX: F31.81 Bipolar II disorder (principal)
CPT/HCPCS: 36415; 80178

== ENCOUNTER 2022-07-26 13:22 | Outpatient (CLI) | payer BC, SELFPAY ==
[2022-07-26 12:01] LABS: Lithium 1.4 mmol/l (0.6-1.2)
== END 2022-07-26 13:23 | disposition home or self-care (01) ==
LOC: LBO 13:26
PROVIDERS: PCP Family Medicine; Visit Provider Family Medicine
DX: F31.81 Bipolar II disorder (principal); Z79.899 Other long term (current) drug therapy; Z51.81 Encounter for therapeutic drug level monitoring
CPT/HCPCS: 36415; 80178

== ENCOUNTER 2022-08-27 16:02 | Outpatient (CLI) | payer BC, SELFPAY ==
[2022-08-27 12:13] LABS: Lithium 0.7 mmol/l (0.6-1.2)
== END 2022-08-27 16:03 | disposition home or self-care (01) ==
LOC: LBO 16:03
PROVIDERS: PCP Family Medicine; Visit Provider Family Medicine
DX: F31.81 Bipolar II disorder; Z51.81 Encounter for therapeutic drug level monitoring
CPT/HCPCS: 36415; 80178

== ENCOUNTER 2022-09-24 14:37 | Outpatient (CLI) | payer BC, SELFPAY | END 2022-09-24 14:38 | disposition home or self-care (01) | LOC: LBO 14:39 | PROVIDERS: PCP Family Medicine; Visit Provider Family Medicine | DX: F31.81 Bipolar II disorder (principal); Z51.81 Encounter for therapeutic drug level monitoring; Z79.899 Other long term (current) drug therapy | CPT/HCPCS: 36415; 80178 ==

== ENCOUNTER 2023-06-27 13:26 | Outpatient (CLI) | payer BC, SELFPAY ==
[2023-06-27 10:10] LABS: Abs Immature Grans 0.01 10^3/uL (0.0-0.06); Absolute Basophil Count 0.03 10^3/uL (0.0-0.2); Absolute Eosinophil Count 0.23 10^3/uL (0.0-0.7); Absolute Lymphocyte Count 1.22 10^3/uL (1.2-3.4); Absolute Monocyte Count 0.45 10^3/uL (0.1-0.8); Absolute Neutrophil Count 3.66 10^3/uL (1.2-6.7); Basophils % 0.5 %; Eosinophils % 4.1 %; HCT 43.3 % (40.0-50.0); HGB 13.7 g/dL (13.5-17.5); Immature Grans % 0.2 %; Lymphocytes % 21.8 %; MCH 27.2 pg (27.0-33.0); MCHC 31.6 % (32.0-36.0); MCV 86 fL (80-95); MPV 8.8 fL (8.0-11.0); Neutrophils % 65.4 %; Platelet Count 228 10^3/uL (130-400); RBC 5.04 10^6/uL (4.36-5.78); RDW 14.2 % (11.8-14.1); RDW-SD 45.1 fL
[2023-06-27 11:20] LABS: ALT 24 U/L (16-63); AST 13 U/L (15-37); Albumin 4.1 g/dL (3.4-5.0); Alkaline Phosphatase 54 U/L (46-116); Anion Gap 5.6 mmol/L (3-11); BUN 9 mg/dL (7-18); Bilirubin, Total 0.5 mg/dL (0.2-1.0); CO2 30.4 mmol/L (21.0-32.0); CREATININE 1.3 mg/dL (0.70-1.30); Calcium 9.2 mg/dL (8.5-10.1); Chloride 106 mmol/L (98-107); Glucose 94 mg/dL (74-106); Potassium 4.4 mmol/L (3.5-5.1); Sodium 142 mmol/L (136-145); TSH (W/Ref FT4) 0.64 uIU/mL (0.36-3.74); Total Protein 7.6 g/dL (6.4-8.2); Vitamin B12 880 pg/mL (193-986)
[2023-06-27 11:52] LABS: Vitamin D 25 Total 27.5 ng/mL (30-100)
== END 2023-06-27 13:27 | disposition home or self-care (01) ==
LOC: LBO 13:26
PROVIDERS: PCP Family Medicine; Visit Provider Registered Nurse
DX: F31.81 Bipolar II disorder (principal); Z51.81 Encounter for therapeutic drug level monitoring
CPT/HCPCS: 36415; 80053; 82306; 82607; 84443; 85025

== ENCOUNTER 2024-01-02 01:54 | Outpatient (CLI) | payer BC, SELFPAY ==
[2024-01-02 10:57] LABS: Abs Immature Grans 0.03 10^3/uL (0.0-0.06); Absolute Basophil Count 0.03 10^3/uL (0.0-0.2); Absolute Lymphocyte Count 1.55 10^3/uL (1.2-3.4); Absolute Monocyte Count 0.58 10^3/uL (0.1-0.8); Absolute Neutrophil Count 4.93 10^3/uL (1.2-6.7); Basophils % 0.4 %; Eosinophils % 5.3 %; HCT 46.1 % (40.0-50.0); HGB 14.5 g/dL (13.5-17.5); Immature Grans % 0.4 %; Lymphocytes % 20.6 %; MCH 27.1 pg (27.0-33.0); MCHC 31.5 % (32.0-36.0); MCV 86 fL (80-95); MPV 8.3 fL (8.0-11.0); Monocytes % 7.7 %; Neutrophils % 65.6 %; Platelet Count 208 10^3/uL (130-400); RBC 5.36 10^6/uL (4.36-5.78); RDW 14.1 % (11.8-14.1); RDW-SD 44.8 fL; WBC 7.52 10^3/uL (4.4-10.8)
[2024-01-02 12:12] LABS: Lithium 0.7 mmol/L (0.6-1.2)
[2024-01-02 12:40] LABS: ALT 18 U/L (16-63); AST 14 U/L (15-37); Albumin 4.2 g/dL (3.4-5.0); Alkaline Phosphatase 59 U/L (46-116); Anion Gap 5.8 mmol/L (3-11); BUN 13 mg/dL (7-18); Bilirubin, Total 0.67 mg/dL (0.2-1.0); CO2 31.2 mmol/L (21.0-32.0); CREATININE 1.3 mg/dL (0.70-1.30); Calcium 9.6 mg/dL (8.5-10.1); Chloride 106 mmol/L (98-107); Estimated GFR 65.69 (mL/min/1.73m2); Glucose 59 mg/dL (74-106); Potassium 4.4 mmol/L (3.5-5.1); Sodium 143 mmol/L (136-145); TSH (W/Ref FT4) 1.36 uIU/mL (0.36-3.74); Vitamin B12 574 pg/mL (193-986); Vitamin D 25 Total 25.4 ng/mL (30-100)
[2024-01-05 13:33] LABS: Testosterone, Total 741 ng/dL (240-950)
== END 2024-01-02 01:55 | disposition home or self-care (01) ==
PROVIDERS: PCP Family Medicine; Visit Provider Registered Nurse
DX: F31.81 Bipolar II disorder (principal); Z51.81 Encounter for therapeutic drug level monitoring
CPT/HCPCS: 36415; 80053; 82306; 84403; 80178; 82607; 84443; 85025

== ENCOUNTER 2024-07-21 09:56 | Outpatient (CLI) | payer BC, SELFPAY ==
--- NOTE | 2024-07-21 09:45 | DI.RAD_ITS ---
Exam(s) XR KNEE LT 2V AP,LAT EXAM: XR KNEE LT 2V AP,LAT CLINICAL HISTORY: LEFT KNEE PAIN. TECHNIQUE: 2D digital imaging was performed. COMPARISON: MRI 11/24/2021 FINDINGS: There has been interval ACL surgery. Fastener buttons appear to be satisfactory position. Bone density normal. No osseous lesions. No degenerative joint space narrowing evident. No inciden erik osseous lesions. However, there does appear to be a joint effusion. IMPRESSION: Previous ACL surgery. Joint effusion which may indicate significant internal derangement. No obviou s degenerative changes. If clinically indicated follow-up MRI can be performed. DATA REPOSITORY: RADIATION DOSE DELIVERED:
== END 2024-07-21 09:57 | disposition home or self-care (01) ==
LOC: DIORS 09:56
PROVIDERS: PCP Family Medicine; Visit Provider Student in an Organized Health Care Education/Training Program
DX: S83.512A Sprain of anterior cruciate ligament of left knee, initial encounter (principal)
CPT/HCPCS: 73560

== ENCOUNTER 2024-08-13 00:24 | Outpatient (CLI) | payer BC, SELFPAY ==
--- NOTE | 2024-08-13 06:45 | DI.MRI_ITS ---
Exam(s) MR LOWER JOINT LT WO EXAM: MR LOWER JOINT LT WO CLINICAL HISTORY: Left knee arthroscopy with acl repair 12/09,lt acl tear,[id number]. TECHNIQUE: Multiplanar multisequence MRI was performed. COMPARISON: MR MR LOWER JOINT LT WO from 11/24/2021 CR XR KNEE LT 2V AP,LAT from 07/21/2024 FINDINGS: BONES: Large area of high signal is present within the lateral femoral condyle. Milder signal noted posterior aspects of both tibial plateaus. Findings consistent with bone contusions. No discrete fracture is visible. Bone defects related to prior ACL repair. JOINTS: A small joint effusion is present. Articular cartilage: Patellofemoral joint: Articular cartilage is unremarkable. Medial femoral tibial joint: Articular cartilage is unremarkable. Lateral femoral tibial joint: Articular cartilage is unremarkable. LIGAMENTS/TENDONS: Anterior Cruciate: Prior ACL repair. The ligament appears indistinct and there is edema along the tract. Findings consistent with full-thickness tear. Posterior Cruciate: Unremarkable. Medial Collateral:Unremarkable. Lateral Collateral ligament complex: Unremarkable. Extensor mechanism: Unremarkable. Medial retinaculum: Unremarkable. Lateral retinaculum: Unremarkable. Popliteus: Unremarkable. MENISCI: The medial meniscus shows some intermediate signal in the posterior horn. There is a radially oriented tear in the body. The lateral meniscus shows a longitudinal tear in the posterior horn. MUSCLES: Unremarkable. SOFT TISSUES: Small Barron's cyst. IMPRESSION: Full-thickness tear of the ACL repair. Longitudinal tear the posterior horn of the lateral meniscus. Radial tear of the body of the medial meniscus. Severe contusion of the lateral femoral condyle and mild contusions of the posterior tibial plateaus. DATA REPOSITORY:
== END 2024-08-13 00:44 ==
LOC: DI 00:24
PROVIDERS: PCP Family Medicine; Visit Provider Student in an Organized Health Care Education/Training Program
DX: S83.512A Sprain of anterior cruciate ligament of left knee, initial encounter (principal); X58.XXXA Exposure to other specified factors, initial encounter
CPT/HCPCS: 73721

== ENCOUNTER 2024-11-19 15:56 | Outpatient (CLI) | payer BC, SELFPAY ==
--- NOTE | 2024-11-19 15:30 | DI.RAD_ITS ---
Exam(s) XR KNEE LT 4V AP,LAT,TITA,PAT EXAM: XR KNEE LT 4V AP,LAT,TITA,PAT CLINICAL HISTORY: Rule out patellar or tibial plateau frx, KNEE PAIN M25.569. TECHNIQUE: 2D digital imaging was performed. Three views. COMPARISON: MR MR LOWER JOINT LT WO from 08/13/2024 FINDINGS: BONES: No acute fracture is present. No bony destructive lesion is seen. Prior ACL repair. Enthesophyte at quadriceps insertion on the patella. JOINTS: The knee is normally aligned. The joint spaces are maintained. No joint effusion is seen. SOFT TISSUE: Normal. IMPRESSION: No acute fractures identified. DATA REPOSITORY: RADIATION DOSE DELIVERED:
--- NOTE | 2024-11-19 16:34 | DI.VRAD_ITS ---
PROCEDURE INFORMATION: Exam: XR Left Knee Exam date and time: 11/19/2024 3:52 PM Age: 54 years old Clinical indication: Other: Lt knee pain, R/O patellar or tibial plateau FX TECHNIQUE: Imaging protocol: Radiologic exam of the left knee. Views: 4 or more views. COMPARISON: MR LOWER JOINT LT WO 08/13/2024 7:50 AM FINDINGS: Bones/joints: ACL repair. Superior patellar enthesopathy Soft tissues: Normal. IMPRESSION: No acute findings Dictated and Authenticated by: Faith Curiel MD. Orderin Warner Vigil MD
== END 2024-11-19 16:16 ==
LOC: DI 15:58
PROVIDERS: PCP Family Medicine; Visit Provider Family Medicine
DX: M25.562 Pain in left knee (principal)
CPT/HCPCS: 73564